=== PATIENT | female | born 1960 | race Caucasian/White ===

== ENCOUNTER → 2021-01-12 07:52 | Outpatient (CLI) | payer MEDICAID, SELFPAY ==
--- NOTE | 2021-01-12 07:55 | CT_ITS ---
ACR Level 3 findings have been noted. An addendum which confirms receipt of the report will follow. STUDY: CTA NECK WITH CONTRAST REASON FOR EXAM: Female, 60 years old. CAROTID ARTORY STENOSIS RADIATION DOSAGE (If Supplied By Facility): CTDIvol = ( 17.23 ) mGy, DLP = ( 550.90 ) mGycm TECHNIQUE: CT angiography with multi-detector data acquisition was performed from the aortic arch to the skull base following intravenous administration of IV 100mL [id number]-370. MIP images were reconstructed from the axial data set. Post-processing of the angiographic images was performed, with multiplanar reformation and 3D reconstruction. Individualized dose optimization techniques were used for this CT. COMPARISON: None. FINDINGS: AORTIC ARCH: There is atherosclerotic plaque of the visualized aortic arch. There is occlusion of the left subclavian artery at the origin and just proximal to the left vertebral takeoff. RIGHT CAROTID ARTERIES: Normal right common carotid artery (CCA). There is moderate atherosclerotic plaque formation with moderate narrowing of the right carotid bulb. There is moderate atherosclerotic plaque formation of the origin of the right internal carotid artery with an estimated stenosis of 50-69% stenosis. Normal visualized cervical portion of the right internal carotid artery. LEFT CAROTID ARTERIES: Normal left common carotid artery (CCA). There is mild atherosclerotic plaque formation with minimal narrowing of the left carotid bulb. There is mild atherosclerotic plaque formation of the origin of the left internal carotid artery with less than 50% cross sectional diameter stenosis. Normal visualized cervical portion of the left internal carotid artery. VERTEBRAL ARTERIES: Patent bilateral vertebral arteries. CT/CTA Neck W/WO Contrast IMPRESSION: Left subclavian artery occlusion proximal to the left vertebral artery. Subclavian steal syndrome is not excluded. Further evaluation with sonography can be obtained. 50-69% stenosis of the right ICA. Electronically Signed: Eddie Marie MD at 9:12 EDT Tel , Service support ,
--- NOTE | 2021-01-12 08:20 | AAVD_ITS ---
Reason For Study: Stricture of artery Aorta Measurements Aorta Doppler Measurements Proximal aorta measures1.78 x 1.78cm. in cross- Peak systolic flow velocities within the proximal sectional axis. aorta measure 130.8 cm/sec. Proximal aorta measures1.73cm. in longitudinal Peak systolic flow velocities within the mid aorta axis. measure 208.9 cm/sec. Mid aorta measures1.00 x 1.05cm. in cross- Peak systolic flow velocities within the distal sectional axis. aorta measure 256.2 cm/sec. Mid aorta measures1.07cm. in longitudinal axis. Distal aorta measures1.00 x 1.04cm. in cross- sectional axis. Distal aorta measures1.05cm. in longitudinal axis. Left Iliac Artery Unable to visualize left iliac artery due to bowel gas. Right Iliac Artery Right iliac artery measures 0.77 x 0.72 cm. in the cross-sectional axis. Right iliac artery measures 0.76 cm. in the longitudinal axis. Peak systolic velocity in the right iliac artery measures 213.1 cm/sec. Procedure Aorta IVC Iliac vasculature or bypass grafts [id number]. Exam performed in department. VL/Abd Aortic/IVC Duplex scan Interpretation Summary Moderate elevated velocities in aorta and unable to visualize left iliac. May w derrick further means of evaluation. Ordering Physician: Charbel Barry Referring Physician: Gerry Yu Performed By: Valentine Marina RVT
--- NOTE | 2021-01-12 08:20 | ADU_ITS ---
Reason For Study: Stricture of artery Right Velocities Left Velocities Ext. Iliac Artery, dist = 206.2 cm./sec. Ext Iliac Artery, dist = 211.4 cm./sec. Common Femoral Artery, mid = 159.5 cm./sec. Common Femoral Artery, mid = 151.7 cm./sec. SFA, Origin, 34.7 cm/sec. SFA, Origin, 108.8 cm/sec. SFA, Prox, 175.2 cm/sec. Supf. Femoral Artery, prox = 351.3 cm./sec. SFA, Prox, distal to stenosis is Occluded. Supf. Femoral Artery, mid = 424.8 cm./sec. SFA, Mid, distal to occlusion, 62.1 cm/sec. Supf. Femoral Artery, dist = 55.3 cm./sec. Supf Femoral Artery, mid = 133.6 cm./sec. Profunda Femoral Artery = 87 cm./sec. Supf Femoral Artery, dist. = 70.5 cm./sec. Popliteal Artery, proximal, = 70.7 cm./sec. Profunda Femoral Artery = 159.5 cm./sec. Popliteal Artery, mid = 74 cm./sec. Popliteal Artery, prox. = 68.7 cm./sec. Popliteal Artery, distal = 35.5 cm./sec. Popliteal Artery, mid = 81.4 cm./sec. Post. Tibial Artery, prox = 36 cm./sec. Popliteal Artery, dist = 63.2 cm./sec. Post Tibial Artery, mid = 47.4 cm./sec. Post. Tibial Artery, prox = 22.5 cm./sec. Post Tibial Artery, dist. = 51.7 cm./sec. Post. Tibial Artery, mid = 22.5 cm./sec. Peroneal Artery, prox = 25.1 cm./sec. Post. Tibial Artery, dist = 20.4 cm./sec. Peroneal Artery, mid = 27.3 cm./sec. Peroneal Artery, prox = 39.6 cm./sec. Peroneal Artery,dist. = 16.3 cm./sec. Peroneal Artery, mid = 23.9 cm./sec. Ant.Tibial Artery, prox = 32 cm./sec. Peroneal Artery,dist = 36 cm./sec. Ant Tibial Artery, mid = 35.9 cm./sec. Ant. Tibial Artery, prox = 48.8 cm./sec. Ant. Tibial Artery, distal = 36.4 cm./sec. Ant. Tibial Artery, mid = 51.7 cm./sec. Ant. Tibial Artery, dist = 60.7 cm./sec. Procedure Exam performed in department. VL/US Art Duplex Bilat Lower Ext Interpretation Summary Right femoral occluded and severe stenosis in left femoral. Ordering Physician: Charbel Barry Referring Physician: Gerry Yu Performed By: Valentine Marina RVT
== END ==
PROVIDERS: PCP Student in an Organized Health Care Education/Training Program; Referring Provider Surgery Vascular Surgery; Visit Provider Surgery Vascular Surgery
DX: I65.23 Occlusion and stenosis of bilateral carotid arteries (principal); I77.1 Stricture of artery; E78.00 Pure hypercholesterolemia, unspecified; I20.9 Angina pectoris, unspecified; I51.9 Heart disease, unspecified; E11.9 Type 2 diabetes mellitus without complications
CPT/HCPCS: 70498; 93925; 93978; Q9967

== ENCOUNTER 2022-10-26 11:04 | Emergency (ER) | payer MEDICAID, SELFPAY ==
[2022-10-26 11:05] VITALS: BP 196/65; PULSE 138; RESP 18; TEMP 36.1; O2SAT 98; BMI 35.9
--- NOTE | 2022-10-26 11:10 | NURSING ---
NO OLD EKGS
--- NOTE | 2022-10-26 12:07 | EKG12_ITS ---
Test Reason : CP Blood Pressure : / mmHG Vent. Rate : 102 BPM Atrial Rate : 102 BPM P-R Int : 224 ms QRS Dur : 140 ms QT Int : 380 ms P-R-T Axes : 082 083 030 degrees QTc Int : 495 ms Sinus tachycardia with 1st degree A-V block Right bundle branch block T wave abnormality, consider inferolateral ischemia Abnormal ECG Confirmed by POLO HANSON, MARNIE ([id number]), international editorial producer QIANA DOHERTY ([id number]) on 10/27/2022 9:14:59 AM Referred By: BB Confirmed By:MARNIE CUELLAR MD
--- NOTE | 2022-10-26 12:08 | EDS_ITS ---
HPI History of Present Illness Chief Complaint: Chest Pain Informant: patient Narrative Narrative: Patient presents with about 15 minutes of diffuse nonradiating chest discomfort along with racing palpitations, both of which are now resolved and did so together. No lightheadedness or near syncope/syncope. No dyspnea. She has had episodes like this in the past, was diagnosed with tachybradycardia syndrome, and is scheduled to get a pacemaker here soon. She developed bradycardia whenever she was placed on low-dose metoprolol, it was symptomatic so that was immediately discontinued. She has a history of CAD as well as a thrombosed left subclavian artery. She is on Brilinta but no anticoagulants. She has seen vascular surgery and they are monitoring things, no interventions or surgery needed. [facility] Medical History Anemia of chronic renal failure Aortic calcification Carotid artery stenosis without cerebral infarction Chronic diastolic (congestive) heart failure Chronic kidney disease, stage 3a Cirrhosis of liver Diabetes mellitus type 2 in nonobese Diabetic neuropathy First degree AV block Hx of pulmonary embolus Hypertensive urgency (~09/13/22) Leg swelling Leukocytosis Moderate obstructive sleep apnea NSTEMI (non-ST elevated myocardial infarction) Palpitations Peripheral vascular disease of extremity RBBB SOB (shortness of breath) Tachycardia with sick sinus syndrome Ventral hernia Home Medications acetaminophen 500 mg capsule 1,000 mg PO TID PRN fever or pain 10/18/22 [History Last Taken Unknown] albuterol sulfate 90 mcg/actuation aerosol inhaler 2 puff inhalation Q4H PRN shortness of breath or wheezing 10/18/22 [History Last Taken Unknown] allopurinol 100 mg tablet 100 mg PO DAILY 10/18/22 [History Last Taken Unknown] amlodipine 5 mg tablet 5 mg PO BID 10/18/22 [History Last Taken Unknown] aspirin 81 mg tablet,delayed release 81 mg PO DAILY 10/18/22 [History Last Taken Unknown] atorvastatin 80 mg tablet 80 mg PO QHS 10/18/22 [History Last Taken Unknown] chlorthalidone 25 mg tablet 25 mg PO DAILY 10/18/22 [History Last Taken Unknown] ergocalciferol (vitamin D2) 1,250 mcg (50,000 unit) capsule 1,250 mcg PO QWEEK 10/18/22 [History Last Taken Unknown] lisinopril 40 mg tablet 40 mg PO DAILY 10/18/22 [History Last Taken Unknown] metformin 500 mg tablet 500 mg PO BID 10/18/22 [History Last Taken Unknown] ondansetron 4 mg disintegrating tablet 4 mg PO Q6H PRN nausea and vomiting 10/18/22 [History Last Taken Unknown] ticagrelor 90 mg tablet 90 mg PO Q12H 10/18/22 [History Last Taken Unknown] clonidine HCl 0.1 mg tablet 0.1 mg PO TID PRN hypertensive emergency 10/20/22 [History Last Taken Unknown] hydralazine 10 mg tablet 10 mg PO TID 10/20/22 [History Last Taken Unknown] midodrine 2.5 mg tablet 2.5 mg PO TID 10/20/22 [History Last Taken Unknown] nitroglycerin 0.4 mg sublingual tablet 0.4 mg sublingual Q5-15M 10/20/22 [History Last Taken Unknown] amiodarone 200 mg tablet 200 mg PO DAILY #30 tabs 10/26/22 [Rx Last Taken Unknown] Allergy/AdvReac Type Severity Reaction Status Date / Time clindamycin Allergy Severe Laryngospas Verified 10/26/22 11:06 ms Penicillins Allergy Severe Anaphylaxis Verified 10/26/22 11:06 doxazosin [From Cardura] Allergy Intermediate Swelling Verified 10/26/22 11:06 Iodinated Contrast Media Allergy Intermediate Hives Verified 10/26/22 11:06 shellfish derived Allergy Intermediate Hives Verified 10/26/22 11:06 Family History Mother Heart disease Cancer renal CVA (cerebral vascular accident) Grandmother Myocardial infarction Diabetes Surgical History History of coronary artery stent placement (~06/03/22) Hx of cardiac catheterization Hx of cholecystectomy Hx of hysterectomy (~1992) Social History Smoking Status: Current every day smoker tobacco type: cigarettes alcohol intake: never substance use type: does not use caffeine: Yes Type: coffee Number of servings: 1 ROS ROS ED Constitutional Constitutional ED: Denies chills or fever(s) Eyes Eyes: Denies change in vision or diplopia ENT ENT ED: Denies rhinorrhea or sore throat Cardiovascular Cardiovascular: Reports chest pain, palpitations and racing heartbeat Respiratory/Chest Respiratory/Chest: Denies cough or dyspnea Gastrointestinal Gastrointestinal: Denies abdominal pain, diarrhea, nausea or vomiting Genitourinary Genitourinary ED: Denies dysuria or hematuria Musculoskeletal Musculoskeletal: Denies back pain or neck pain Integumentary Denies abscess or rash Neurologic Neurologic: Denies headache(s), paresthesias or weakness Psychiatric Psychiatric: Denies anxiety or suicidal thoughts EXAM Physical Exam Const Vital Signs: 10/26/22 11:05 10/26/22 11:34 10/26/22 12:18 Temperature 97 F L Temperature Source Temporal Pulse Rate 138 H Respiratory Rate 18 Respiratory Effort Normal Blood Pressure 196/65 H Blood Pressure Mean 108 Pulse Ox 98 98 Oxygen Delivery Method Room Air Room Air 10/26/22 12:32 10/26/22 13:27 10/26/22 14:31 Temperature Temperature Source Pulse Rate 88 80 81 Respiratory Rate 16 16 21 H Respiratory Effort Blood Pressure 124/63 H Blood Pressure Mean 83 Pulse Ox 98 98 98 Oxygen Delivery Method Room Air Room Air Room Air 10/26/22 15:10 Temperature Temperature Source Pulse Rate 80 Respiratory Rate 16 Respiratory Effort Blood Pressure 133/45 H Blood Pressure Mean 74 Pulse Ox 97 Oxygen Delivery Method Room Air Positive well nourished and well developed General Appearance ED: well developed and NAD HEENT Reports moist mucous membranes normocephalic and atraumatic Eyes PERRL and EOMs intact bilaterally Neck full ROM and supple Chest Wall inspection of chest normal and palpation of chest normal Resp normal respiratory effort and clear to auscultation bilaterally Cardio regular rate, regular rhythm and no murmurs Peripheral Pulses: pulses 2+ throughout GI non-tender and non-distended Auscultation: normoactive bowel sounds Palpation: soft Back/Spine no CVA tenderness General Back: other FROM Extremity normal to inspection General Extremety ED: Negative for edema, pulses abnormal or tenderness General Extremity: Negative for edema or pulses abnormal Neuro oriented x3, CN's II-XII intact bilaterally and no sensory deficits noted Sensorium / Orientation: awake and alert Motor Exam: strength 5/5 throughout Skin no rashes or lesions noted and no wounds Heart Score History: Moderately Suspicious ECG: Nonspecific Repolarization Age: >45 - <65 years Risk Factors: >/= 3 Risk Factors or History of CAD Troponin: </= Normal Limit Score: 5 MDM MDM MDM Narrative Medical decision making narrative: Patient was observed, she had no further episodes of palpitations or chest discomfort. Her EKG shows inferior lateral repolarization abnormality but it is unchanged compared to several of her old EKGs. Her initial troponin is 8, we did a 2-hour delta and continued monitoring her, she was asymptomatic and it was negative for significant change at 10. I did not feel chest x-ray was indicated here. She has had these episodes before, she is already been assessed by cardiology, she was diagnosed with tachybradycardia syndrome and is awaiting pacemaker placement so that she can then be placed on beta-blockers without developing symptomatic bradycardia. Since the patient had no tachycardia since she has been here on the monitor/EKG, it is unknown if she is having episodes of atrial fibrillation or just sinus tachycardia. I discussed with Dr. Sethi, he is okay with the patient going home and recommend I touch base with Dr. Braun regarding when she can get her micro pacemaker. He said he would try to get her in when able, and recommended placing her on amiodarone 200 mg daily, without an IV load. The patient has never tried this medication. We discussed the potential for bradycardia but I think it is less likely than carvedilol to metoprolol which she has tried and failed in the past. Lab Data Attestation: I reviewed the patient's lab results. Labs: Laboratory Results - last 24 hr 10/26/22 10/26/22 10/26/22 11:24 11:24 15:00 WBC 12.2 H RBC 4.28 Hgb 12.2 Hct 38.3 MCV 89.5 MCH 28.5 MCHC 31.9 L RDW Std Deviation 50.2 H RDW Coeff of Claudia 15.4 H Plt Count 347 MPV 10.1 Immature Gran % (Auto) 0.500 Neut % (Auto) 68.5 Lymph % (Auto) 20.6 [place] % (Auto) 5.4 Eos % (Auto) 4.1 Baso % (Auto) 0.9 Absolute Neuts (auto) 8.3 H Absolute Lymphs (auto) 2.50 Nucleated RBC % 0 Sodium 141 Potassium 3.8 Chloride 109 H Carbon Dioxide 21.0 Anion Gap 11 BUN 33 H Creatinine 1.64 H Estim Creat Clear Calc 29.42 Est GFR (MDRD) Af Amer 41 L Est GFR (MDRD) Non-Af 34 L BUN/Creatinine Ratio 20.1 H Glucose 184 H Calcium 9.6 Troponin I High Sens 8 10 Rhythm Strip Rhythm Strip: Sinus Rhythm Rate: 99 Ectopy: None EKG Initial EKG: Attestation: I personally reviewed and interpreted this EKG as follows: Interpretation: Sinus Rhythm, No Acute Injury Pattern, RBBB and AV Block (1st deg) Comments: Inferolateral repolarization abnormality Prior EKG tracings: available for review Prior: Unchanged Discharge Plan Triage Chief Complaint: Chest Pain ED Provider: Ramon Flanagan Dx/Rx/DC Orders Clinical Impression: Palpitations, Chest pain, Tachycardia with sick sinus syndrome Instructions: Sick Sinus Syndrome Prescriptions: New amiodarone 200 mg tablet 200 mg PO DAILY Qty: 30 0RF No Action acetaminophen 500 mg capsule 1,000 mg PO TID PRN (Reason: fever or pain) albuterol sulfate 90 mcg/actuation HFA aerosol inhaler 2 puff inhalation Q4H PRN (Reason: shortness of breath or wheezing) allopurinol 100 mg tablet 100 mg PO DAILY amlodipine 5 mg tablet 5 mg PO BID aspirin 81 mg tablet,delayed release (DR/EC) 81 mg PO DAILY atorvastatin 80 mg tablet 80 mg PO QHS ergocalciferol (vitamin D2) 1,250 mcg (50,000 unit) capsule 1,250 mcg PO QWEEK lisinopril 40 mg tablet 40 mg PO DAILY metformin 500 mg tablet 500 mg PO BID ondansetron 4 mg tablet,disintegrating 4 mg PO Q6H PRN (Reason: nausea and vomiting) ticagrelor 90 mg tablet 90 mg PO Q12H chlorthalidone 25 mg tablet 25 mg PO DAILY hydralazine 10 mg tablet 10 mg PO TID nitroglycerin 0.4 mg tablet, sublingual 0.4 mg sublingual Q5-15M midodrine 2.5 mg tablet 2.5 mg PO TID Label Comments: TAKE 2 TABLETS BY MOUTH 3 TIMES A DAY NEEDED FOR DIZZINESS -IF SBP 90 AND DIZZY clonidine HCl 0.1 mg tablet 0.1 mg PO TID PRN (Reason: hypertensive emergency) Label Comments: If SBP greater than 180 Primary Care Provider: Gerry Yu Referrals: Claribel Sethi MD [Med Staff - Active Staff] - Keep Jolene appointment Gerry Yu DO [Primary Care Provider] - Disposition Disposition: Home, Self Care
[2022-10-26 12:18] VITALS: O2SAT 98
[2022-10-26] MEDS: Ondansetron 4 MG/2 ML Vial IV (12:20)
[2022-10-26 12:25] LABS: Absolute Neutrophil Count 8.3 X10^3/uL (2.0-7.7); Basophil# 0.11 X10^3/uL; Basophil% 0.9 % (0-1); Eosinophils% 4.1 % (0-5); Hematocrit 38.3 % (37-47); Hemoglobin 12.2 g/dL (12.0-15.0); Lymphocyte % 20.6 % (19-41); Mean Corp Hgb Conc 31.9 g/dL (32-36); Mean Corpuscular Hgb 28.5 pg (27.0-32.0); Mean Corpuscular Volume 89.5 fL (81-99); Mean Platelet Vol. 10.1 fl (6.2-12.0); Monocyte# 0.66 X10^3/uL; Monocyte% 5.4 % (0-10); NRBC Flagged by Analyzer 0 % (0-5); Neutrophil # 8.33 X10^3/uL (2.7-7.7); Neutrophil % 68.5 % (47-70); Platelet Count 347 K/mm3 (150-450); RBC Distribution Width CV 15.4 % (11.6-14.6); RBC Distribution Width SD 50.2 fl (35.1-43.9); Red Blood Count 4.28 M/mm3 (4.2-5.4); White Blood Count 12.2 K/mm3 (4.4-11.0)
[2022-10-26 12:32] VITALS: PULSE 88; RESP 16; O2SAT 98
[2022-10-26 12:42] LABS: Anion Gap 11 (5-15); BUN 33 mg/dL (7-18); BUN/Creat Ratio 20.1 RATIO (10-20); Calcium,Total 9.6 mg/dL (8.5-10.1); Chloride 109 mmol/L (98-107); Creatinine, Serum 1.64 mg/dL (0.55-1.02); EST Glomerular Filtration Rate 34 mL/min (>60); Est Glom Filt Rate - Afr Amer 41 mL/min (>60); Estimated Creatinine Clearance 29.42 ml/min; Glucose 184 mg/dL (74-106); Potassium 3.8 mmol/L (3.5-5.1); Sodium Level 141 mmol/L (136-145); Troponin-I HS (w/2H Reflex) 8 pg/mL (3.0-54.0)
[2022-10-26 13:27] VITALS: PULSE 80; RESP 16; O2SAT 98
[2022-10-26 14:20] LABS: Reflex Troponin-HS? (from REC) Y
[2022-10-26 14:31] VITALS: BP 124/63; PULSE 81; RESP 21; O2SAT 98
[2022-10-26 15:10] VITALS: BP 133/45; PULSE 80; RESP 16; O2SAT 97
[2022-10-26 15:35] LABS: Troponin-I HS 10 pg/mL (3.0-54.0)
== END 2022-10-26 16:19 | disposition home or self-care (01) ==
PROVIDERS: Emergency Provider Emergency Medicine; PCP Student in an Organized Health Care Education/Training Program; Visit Provider Emergency Medicine
DX: R07.9 Chest pain, unspecified (principal); K74.60 Unspecified cirrhosis of liver; I50.32 Chronic diastolic (congestive) heart failure; E11.22 Type 2 diabetes mellitus with diabetic chronic kidney disease; E11.40 Type 2 diabetes mellitus with diabetic neuropathy, unspecified; I49.5 Sick sinus syndrome; N18.31 Chronic kidney disease, stage 3a; R00.2 Palpitations; I25.10 Atherosclerotic heart disease of native coronary artery without angina pectoris; I65.29 Occlusion and stenosis of unspecified carotid artery; G47.33 Obstructive sleep apnea (adult) (pediatric); F17.210 Nicotine dependence, cigarettes, uncomplicated; I25.2 Old myocardial infarction; Z79.899 Other long term (current) drug therapy; Z79.82 Long term (current) use of aspirin; Z79.84 Long term (current) use of oral hypoglycemic drugs; Z95.5 Presence of coronary angioplasty implant and graft; Z86.711 Personal history of pulmonary embolism
CPT/HCPCS: 80048; 84484; 85025; 93005; 99284; A4216; J2405

== ENCOUNTER 2022-11-12 04:59 | Observation (INO) | payer MEDICAID, SELFPAY ==
[2022-11-12] VITALS (13 sets, daily range): BP systolic 87–158; BP diastolic 42–75; PULSE 74–90; RESP 13–18; TEMP 36.2–36.9; O2SAT 93–100; BMI 36.1
--- NOTE | 2022-11-12 05:35 | EKG12_ITS ---
Test Reason : am Blood Pressure : / mmHG Vent. Rate : 079 BPM Atrial Rate : 079 BPM P-R Int : 270 ms QRS Dur : 142 ms QT Int : 440 ms P-R-T Axes : 075 052 040 degrees QTc Int : 504 ms Sinus rhythm with 1st degree A-V block Right bundle branch block Abnormal ECG Confirmed by POLO HANSON, MARNIE ([id number]), tape editor QIANA DOHERTY ([id number]) on 11/15/2022 12:45:49 PM Referred By: Georgie Confirmed By:MARNIE CUELLAR MD
--- NOTE | 2022-11-12 05:45 | PCM.HP.STD ---
HPI - General General Date of Admission: 11/12/22 Date of Service: 11/12/22 Chief Complaint: Chest Pain HPI Narrative ROSALINA RABAGO, is a 62 F with a significant history of CKD stage IIIa; diabetes mellitus on metformin; hypertension; and CAD status post 2 stents placed at [facility] in [place] on June 03, 2022 and who represented to [facility] with episodic chest pain that started about 3 days before presentation. The pain is located at her left chest. One time the pain radiated to her left arm. Walking and moving aggravate the pain and lying down improves the pain. Associated with her symptoms is nausea and vomiting. Also, shortness of breath over the pain. Also patient has palpitations with the pain. She feels her heart racing and then she feels a heart rate dropping. Patient reports that her symptoms actually started about 4 days after she had the stents placed. At that time she had racing of the heart and elevated blood pressure.. Then as the days went by she also developed low heart rates. She reported typically she has high blood pressure, low blood pressure, bradycardia and tachycardia. Patient reports previously being on metoprolol but it caused her heart rate to drop. Metoprolol was changed to carvedilol. Carvedilol dose was later halved but still still continue to have drop in heart rate so she quit taking carvedilol. Patient recently establish care with Dr. Sethi. Discussion was made to start patient on amiodarone. However patient is allergic to iodine so she could not be started on amiodarone. Patient reported that she was supposed to have leadless micro pacemaker because of subclavian steal syndrome which will interfere with placement of regular pacemaker. However insurance did not approve her for leadless micro pacemaker. Patient reports a schedule office appointment with Dr. Yemi Mares a test grader in [place] at 2pm 11/12/21. [facility]LY [facility] Medical History Anemia of chronic renal failure Aortic calcification Atherosclerosis of coronary artery of [place] heart without angina pectoris Carotid artery stenosis without cerebral infarction Chronic diastolic (congestive) heart failure Chronic kidney disease, stage 3a Cirrhosis of liver CKD (chronic kidney disease) stage 3, GFR 30-59 ml/min Coronary artery disease Diabetes mellitus type 2 in nonobese Diabetic neuropathy First degree AV block Hx of pulmonary embolus Hypertensive urgency (~09/13/22) Leg swelling Leukocytosis Moderate obstructive sleep apnea NSTEMI (non-ST elevated myocardial infarction) Palpitations Peripheral vascular disease of extremity RBBB SOB (shortness of breath) Tachycardia with sick sinus syndrome Ventral hernia Home Medications acetaminophen 500 mg capsule 1,000 mg PO PRN PRN fever or pain 10/18/22 [History Last Taken Unknown] albuterol sulfate 90 mcg/actuation aerosol inhaler 2 puff inhalation PRN PRN shortness of breath or wheezing 10/18/22 [History Last Taken Unknown] allopurinol 100 mg tablet 100 mg PO DAILY Check with primary doctor 10/18/22 [History Last Taken Unknown] amlodipine 5 mg tablet 5 mg PO BID Check with primary doctor 10/18/22 [History Last Taken Unknown] aspirin 81 mg tablet,delayed release 81 mg PO DAILY Check with primary doctor 10/18/22 [History Last Taken Unknown] atorvastatin 80 mg tablet 80 mg PO QHS Check with primary doctor 10/18/22 [History Last Taken Unknown] chlorthalidone 25 mg tablet 25 mg PO DAILY Check with primary doctor 10/18/22 [History Last Taken Unknown] ergocalciferol (vitamin D2) 1,250 mcg (50,000 unit) capsule 1,250 mcg PO QWEEK Check with primary doctor 10/18/22 [History Last Taken Unknown] lisinopril 40 mg tablet 40 mg PO DAILY Check with primary doctor 10/18/22 [History Last Taken Unknown] metformin 500 mg tablet 500 mg PO BID Check with primary doctor 10/18/22 [History Last Taken Unknown] ondansetron 4 mg disintegrating tablet 4 mg PO Q6H PRN nausea and vomiting 10/18/22 [History Last Taken Unknown] ticagrelor 90 mg tablet 90 mg PO Q12H Check with primary doctor 10/18/22 [History Last Taken Unknown] clonidine HCl 0.1 mg tablet 0.1 mg PO PRN PRN hypertensive emergency 10/20/22 [History Last Taken Unknown] midodrine 2.5 mg tablet 2.5 mg PO PRN PRN Low blood pressure 10/20/22 [History Last Taken Unknown] nitroglycerin 0.4 mg sublingual tablet 0.4 mg sublingual Q5-15M PRN Chest Pain 10/20/22 [History Last Taken Unknown] carvedilol 3.125 mg tablet 1.5625 mg PO .COMPLEX Check with primary doctor 11/09/22 [History Last Taken 11/08/22] hydralazine 10 mg tablet 10 mg PO BID Check with primary doctor 11/11/22 [History Last Taken Unknown] Allergy/AdvReac Type Severity Reaction Status Date / Time clindamycin Allergy Severe Laryngospas Verified 10/26/22 11:06 ms Penicillins Allergy Severe Anaphylaxis Verified 10/26/22 11:06 doxazosin [From Cardura] Allergy Intermediate Swelling Verified 10/26/22 11:06 Iodinated Contrast Media Allergy Intermediate Hives Verified 10/26/22 11:06 shellfish derived Allergy Intermediate Hives Verified 10/26/22 11:06 Family History Mother Heart disease Cancer renal CVA (cerebral vascular accident) Grandmother Myocardial infarction Diabetes Surgical History History of coronary artery stent placement (~06/03/22) Hx of cardiac catheterization Hx of cholecystectomy Hx of hysterectomy (~1992) Presence of stent in coronary artery Social History housing: house Smoking Status: Current every day smoker tobacco type: cigarettes alcohol intake: never substance use type: does not use caffeine: Yes Type: coffee Number of servings: 1 ROS ROS Narrative Pertinent positives and pertinent negatives as noted in HPI. All other systems were reviewed and are negative Vital Signs Vital Signs Vital Signs: 11/12/22 05:01 11/12/22 05:24 Temperature 97.7 F L Temperature Source Oral Pulse Rate 81 Respiratory Rate 18 Respiratory Effort Normal Non-Labored Respiratory Depth Normal Respiratory Pattern Normal Blood Pressure 142/60 H Blood Pressure Mean 87 Blood Pressure Source Monitor Blood Pressure Position Semi-Fowlers Blood Pressure Location Left Arm Pulse Ox 100 Oxygen Delivery Method Room Air Room Air Weight Weight: 92.4 kg Body Mass Index (BMI) 36.1 Physical Exam Narrative Physical exam: General: Well-nourished, well-developed. Head: Normocephalic, atraumatic, no tenderness Eyes: Vision is grossly intact. EOMI ENT, no trauma, moist mucous membranes, no rhinorrhea Neck: Nontender, No thyromegaly. CVS: Regular rate and rhythm. S1-S2 present. No murmur, gallop or rub. Respiratory : clear to auscultation bilaterally, chest wall nontender, no wheezing Abdomen: Soft, nontender, nondistended, normal bowel sounds, no masses : Deferred Back: Nontender, no CVA tenderness. Extremities: Nontender full range of motion, no trauma Skin: Normal color, no trauma, abrasions Neuro: Alert, oriented, cranial nerves II through XII grossly intact. Psychiatry: Normal mood. Normal affect. Not depressed. Not anxious. Assessment & Plan Assessment/Plan (1) Tachycardia with sick sinus syndrome: (2) CKD (chronic kidney disease) stage 3, GFR 30-59 ml/min: (3) Chest pain, unspecified: PLAN: Plan Chest Pain and Tachy-erika Syndrome Place on a monitored bed at PCU EKG with first-degree AV block and right bundle branch block. Check chest x-ray. Aspirin, Brilinta and high statin statin continue SL NTG 0.4 mg prn as needed for chest pain ordered Initial high sensitive troponin at outside hospital ED was negative. As at the time of transfer a repeat troponin was pending. Will repeat high sensitivity troponin. Keep npo. Discussed and consulted test grader, Dr. Braun. Prolonged QTc interval Avoid QTc prolongation drugs. Diabetes mellitus with nephropathy Hold home metformin. Accu-Chek with correction scale insulin ordered. CKD stage IIIa From records at [facility] stable Hypertension Blood pressure is not within goal Lisinopril, chlorthalidone, hydralazine, amlodipine and as needed clonidine continued. Trend blood pressure and adjust blood pressure medications. DVT prophylaxis SCD ordered. Charges/Coding Visit Charges Inpatient E&M: 99568 Init Hosp L3
[2022-11-12 06:47] LABS: Absolute Lymphocyte Count 3.63 X10^3/uL (0.83-4.51); Absolute Neutrophil Count 8.9 X10^3/uL (2.0-7.7); Basophil# 0.12 X10^3/uL; Basophil% 0.8 % (0-1); Eosinophil# 0.69 X10^3/uL; Eosinophils% 4.7 % (0-5); Hematocrit 36.1 % (37-47); Hemoglobin 11.6 g/dL (12.0-15.0); Lymphocyte # 3.63 X10^3/ul (0.83-4.51); Lymphocyte % 24.9 % (19-41); Mean Corp Hgb Conc 32.1 g/dL (32-36); Mean Corpuscular Hgb 29.2 pg (27.0-32.0); Mean Corpuscular Volume 90.9 fL (81-99); Mean Platelet Vol. 10.1 fl (6.2-12.0); Monocyte% 8.2 % (0-10); NRBC Flagged by Analyzer 0 % (0-5); Neutrophil # 8.89 X10^3/uL (2.7-7.7); Platelet Count 411 K/mm3 (150-450); RBC Distribution Width CV 15.5 % (11.6-14.6); Red Blood Count 3.97 M/mm3 (4.2-5.4); White Blood Count 14.6 K/mm3 (4.4-11.0)
--- NOTE | 2022-11-12 06:53 | RAD_ITS ---
STUDY: X-RAY CHEST REASON FOR EXAM: Female, 62 years old. Chest pain TECHNIQUE: Single AP portable view of the chest. COMPARISON: Comparison is made with prior study dated 10/25/2022. FINDINGS: EKG electrodes are seen. A faint 2.2 cm x 1.8 cm nodule is seen in the medial aspect of the right upper lobe. Correlation with a CT scan is recommended. There is no demonstrated pleural abnormality. Normal size heart. Normal mediastinum and lavon. Normal visualized pulmonary arteries. There is atherosclerotic calcification of the aortic arch with tortuosity. There are diffuse degenerative changes of the visualized thoracic spine. Normal visualized ribs, clavicles, and shoulders. There is no demonstrated abnormality of the visualized soft tissue structures of the upper abdomen. RAD/Chest 1 View (Portable) IMPRESSION: Questionable 2.2 cm x 1.8 cm nodule in the medial aspect of the right upper lobe. Correlation with a CT scan of the thorax is recommended. Electronically Signed: Liu Flaherty MD at 8:56 EST ,
[2022-11-12] MEDS: 0.9% Saline Lock 10 ML Syringe IV (07:01)
[2022-11-12 07:02] LABS: Anion Gap 8 (5-15); BUN 43 mg/dL (7-18); BUN/Creat Ratio 27.9 RATIO (10-20); Calcium,Total 9.6 mg/dL (8.5-10.1); Chloride 107 mmol/L (98-107); Creatinine, Serum 1.54 mg/dL (0.55-1.02); EST Glomerular Filtration Rate 36 mL/min (>60); Est Glom Filt Rate - Afr Amer 44 mL/min (>60); Estimated Creatinine Clearance 31.33 ml/min; Glucose 134 mg/dL (74-106); Magnesium 2.2 mg/dL (1.6-2.6); Potassium 3.8 mmol/L (3.5-5.1); Sodium Level 141 mmol/L (136-145)
[2022-11-12] MEDS: TICAGRELOR 90 MG TABLET PO (07:02)
[2022-11-12] MEDS: 0.9% Normal Saline 1,000 ML 75 ML IV (07:02)
[2022-11-12 07:09] LABS: Troponin-I HS 11 pg/mL (3.0-54.0)
[2022-11-12 07:25] LABS: Bedside Glucose 141 mg/dL (74-106)
--- NOTE | 2022-11-12 08:07 | PCM.CONS.C ---
Assessment & Plan Assessment/Plan (1) Tachycardia with sick sinus syndrome: PLAN: She does appear to have evidence of tachybradycardia syndrome with pauses noted. She had been referred to have a consideration for her pacemaker placed in an outside facility but now looking at the information and data fully I think that we can proceed with a permanent transvenous pacemaker here. Risk benefits alternatives have been discussed with her she understands and agrees to proceed. (2) Resistant hypertension: PLAN: She does have a history of hypertension and the plan to be to continue the current medical therapy. An echocardiogram will be obtained to assess her ventricular function. (3) Presence of stent in coronary artery: PLAN: She does have a history of coronary artery stenting as noted above. The plan will be to continue her current medical therapy. Statins and hopefully beta-cristina will be able to be instituted after the procedure. Thank you for allowing me to participate in the care of your patient. Please don't hesitate to call if any issues arise. HPI Consult Data Date of Consult: 11/12/22 HPI Narrative HPI Narrative: ROSALINA RABAGO, is a 62 F who presents to an outside hospital with chest discomfort which she describes as a heaviness and sometimes sharp. She has a history of coronary artery disease status post PCI of the LAD and the right coronary artery in June 2022 at [facility]. This was done via the right femoral approach even though the patient was noted to have femoral artery occlusion. A previous ultrasound. The patient also has a left subclavian artery occlusion. She also has a history of severe hypertension which has been labile and has been on multiple medications and has developed significant bradycardia arrhythmias as well as pauses in excess of 4 seconds on a low-dose of beta-cristina. She had been on low-dose of clonidine with this as well. It is thought that she does have some element of tachybradycardia syndrome. She recently presented in September at [facility] again with chest discomfort underwent a myocardial perfusion stress test which did not demonstrate any evidence of ischemia. Cardiac catheterization done in June had demonstrated residual 70% stenosis noted in the circumflex artery. She had seen my colleague here and at that time was thought that had tachybradycardia syndrome and would need a permanent pacemaker. Initial arrangements have been made for her to get a Micra device but this was declined by insurance. She continues to have palpitations and does not tolerate negative chronotropic agents. She presents again with chest discomfort. Her EKG demonstrated a sinus rhythm with a first-degree AV block and a right bundle branch block. [facility] Medical History Anemia of chronic renal failure Aortic calcification Atherosclerosis of coronary artery of [place] heart without angina pectoris Carotid artery stenosis without cerebral infarction Chronic diastolic (congestive) heart failure Chronic kidney disease, stage 3a Cirrhosis of liver CKD (chronic kidney disease) stage 3, GFR 30-59 ml/min Coronary artery disease Diabetes mellitus type 2 in nonobese Diabetic neuropathy First degree AV block Hx of pulmonary embolus Hypertensive urgency (~09/13/22) Leg swelling Leukocytosis Moderate obstructive sleep apnea NSTEMI (non-ST elevated myocardial infarction) Palpitations Peripheral vascular disease of extremity RBBB SOB (shortness of breath) Tachycardia with sick sinus syndrome Ventral hernia Home Medications acetaminophen 500 mg capsule 1,000 mg PO PRN PRN fever or pain 10/18/22 [History Last Taken Unknown] albuterol sulfate 90 mcg/actuation aerosol inhaler 2 puff inhalation PRN PRN shortness of breath or wheezing 10/18/22 [History Last Taken Unknown] allopurinol 100 mg tablet 100 mg PO DAILY Check with primary doctor 10/18/22 [History Last Taken Unknown] amlodipine 5 mg tablet 5 mg PO BID Check with primary doctor 10/18/22 [History Last Taken Unknown] aspirin 81 mg tablet,delayed release 81 mg PO DAILY Check with primary doctor 10/18/22 [History Last Taken Unknown] atorvastatin 80 mg tablet 80 mg PO QHS Check with primary doctor 10/18/22 [History Last Taken Unknown] chlorthalidone 25 mg tablet 25 mg PO DAILY Check with primary doctor 10/18/22 [History Last Taken Unknown] ergocalciferol (vitamin D2) 1,250 mcg (50,000 unit) capsule 1,250 mcg PO QWEEK Check with primary doctor 10/18/22 [History Last Taken Unknown] lisinopril 40 mg tablet 40 mg PO DAILY Check with primary doctor 10/18/22 [History Last Taken Unknown] metformin 500 mg tablet 500 mg PO BID Check with primary doctor 10/18/22 [History Last Taken Unknown] ondansetron 4 mg disintegrating tablet 4 mg PO Q6H PRN nausea and vomiting 10/18/22 [History Last Taken Unknown] ticagrelor 90 mg tablet 90 mg PO Q12H Check with primary doctor 10/18/22 [History Last Taken Unknown] clonidine HCl 0.1 mg tablet 0.1 mg PO PRN PRN hypertensive emergency 10/20/22 [History Last Taken Unknown] midodrine 2.5 mg tablet 2.5 mg PO PRN PRN Low blood pressure 10/20/22 [History Last Taken Unknown] nitroglycerin 0.4 mg sublingual tablet 0.4 mg sublingual Q5-15M PRN Chest Pain 10/20/22 [History Last Taken Unknown] carvedilol 3.125 mg tablet 1.5625 mg PO .COMPLEX Check with primary doctor 11/09/22 [History Last Taken 11/08/22] hydralazine 10 mg tablet 10 mg PO BID Check with primary doctor 11/11/22 [History Last Taken Unknown] Allergy/AdvReac Type Severity Reaction Status Date / Time clindamycin Allergy Severe Laryngospas Verified 10/26/22 11:06 ms Penicillins Allergy Severe Anaphylaxis Verified 10/26/22 11:06 doxazosin [From Cardura] Allergy Intermediate Swelling Verified 10/26/22 11:06 Iodinated Contrast Media Allergy Intermediate Hives Verified 10/26/22 11:06 shellfish derived Allergy Intermediate Hives Verified 10/26/22 11:06 Family History Mother Heart disease Cancer renal CVA (cerebral vascular accident) Grandmother Myocardial infarction Diabetes Surgical History History of coronary artery stent placement (~06/03/22) Hx of cardiac catheterization Hx of cholecystectomy Hx of hysterectomy (~1992) Presence of stent in coronary artery Social History housing: house Smoking Status: Current every day smoker tobacco type: cigarettes alcohol intake: never substance use type: does not use caffeine: Yes Type: coffee Number of servings: 1 ROS Constitutional Constitutional: Denies fever(s) or weight loss Eyes Eyes: Reports systems reviewed and no addt'l complaints, except as documented ENT HEENT: Reports systems reviewed and no addt'l complaints, except as documented Cardiovascular Cardiovascular: Reports chest pain at rest and palpitations; Denies chest pain with activity, dyspnea at rest, dyspnea on exertion, edema or paroxysmal nocturnal dyspnea Respiratory/Chest Respiratory/Chest: Denies dyspnea on exertion, productive cough, shortness of breath at rest or shortness of breath with exertion Gastrointestinal Gastrointestinal: Denies change in bowel habits, nausea, vomiting or weight changes Genitourinary Genitourinary: Denies difficulty urinating Musculoskeletal Musculoskeletal: Denies joint stiffness or muscle weakness Integumentary Integumentary: Denies lesions Neurologic Neurologic: Denies dizziness or syncope Psychiatric Psychiatric: Denies anxiety Endocrine Endocrinology: Denies excessive sweating or fatigue Hematologic/Lymphatic Hematologic/Lymphatic: Denies anemia Allergic/Immunologic Allergic/Immunologic: Denies seasonal rhinorrhea Risk Stratification Risk Stratification Applicable: Yes Age >/= 65: No >/= 3 CAD Risk Factors (HTN, HLD, DM, family hx of CAD, or current smoker): Yes Aspirin Use in the Past 7 Days: Yes Severe Angina (>/= episodes in 24 hours): No EKG ST Changes >/= 0.5mm: No Positive Cardiac Marker: No MAYA Risk Stratification Score: 2 MAYA % Risk: 8% Risk Objective Data Vital Signs: Vital Signs Temp Pulse Resp BP Pulse Ox O2 Del Method 97.7 F L 81 18 142/60 H 98 Room Air 11/12/22 05:01 11/12/22 05:01 11/12/22 05:01 11/12/22 05:01 11/12/22 06:58 11/12/22 06:58 Oxygen Delivery Method Room Air Weight: 203 lb 11.314 oz Body Mass Index (BMI) 36.1 Lab / Micro Data Result Diagrams: 11/12/22 06:29 11/12/22 06:29 Labs: Laboratory Results - last 24 hr 11/12/22 06:29: WBC 14.6 H, RBC 3.97 L, Hgb 11.6 L, Hct 36.1 L, MCV 90.9, MCH 29.2, MCHC 32.1, RDW Std Deviation 51.0 H, RDW Coeff of Claudia 15.5 H, Plt Count 411, MPV 10.1, Immature Gran % (Auto) 0.400, Neut % (Auto) 61.0, Lymph % (Auto) 24.9, [place] % (Auto) 8.2, Eos % (Auto) 4.7, Baso % (Auto) 0.8, Absolute Neuts (auto) 8.9 H, Absolute Lymphs (auto) 3.63, Nucleated RBC % 0 11/12/22 06:29: Sodium 141, Potassium 3.8, Chloride 107, Carbon Dioxide 26.0, Anion Gap 8, BUN 43 H, Creatinine 1.54 H, Estim Creat Clear Calc 31.33, Est GFR (MDRD) Af Amer 44 L, Est GFR (MDRD) Non-Af 36 L, BUN/Creatinine Ratio 27.9 H, Glucose 134 H, Calcium 9.6, Magnesium 2.2 11/12/22 06:29: Troponin I High Sens 11 11/12/22 07:07: POC Glucose 141 H Cardiology Labs/Tests 11/12/22 06:29: WBC 14.6 H, RBC 3.97 L, Hgb 11.6 L, Hct 36.1 L, MCV 90.9, MCH 29.2, MCHC 32.1, Plt Count 411, MPV 10.1, Immature Gran % (Auto) 0.400, Neut % (Auto) 61.0, Lymph % (Auto) 24.9, [place] % (Auto) 8.2, Eos % (Auto) 4.7, Baso % (Auto) 0.8, Absolute Neuts (auto) 8.9 H, Nucleated RBC % 0 11/12/22 06:29: Sodium 141, Potassium 3.8, Chloride 107, Carbon Dioxide 26.0, Anion Gap 8, BUN 43 H, Creatinine 1.54 H, Est GFR (MDRD) Af Amer 44 L, Est GFR (MDRD) Non-Af 36 L, BUN/Creatinine Ratio 27.9 H, Glucose 134 H, Calcium 9.6, Magnesium 2.2 Rhythm: EKG: ECHO: Stress Test: Cardiac Cath: PCI: CT Surgery: Holter monitor: EPS: PPM: CXR: Chest CT Scan:
[2022-11-12 09:39] LABS: Troponin-I HS 9 pg/mL (3.0-54.0)
[2022-11-12] MEDS: 0.9% Normal Saline 1,000 ML 15 ML IV (10:00)
[2022-11-12] MEDS: Lisinopril 40 MG Tablet PO (10:02)
[2022-11-12] MEDS: Allopurinol 100 MG Tablet PO (10:02)
[2022-11-12] MEDS: hydrALAZINE 10 MG Tablet PO ×2 (10:02→22:38)
[2022-11-12] MEDS: amLODIPine 5 MG Tablet PO ×2 (10:02→22:38)
[2022-11-12] MEDS: Chlorthalidone 50 MG Tablet 25 MG PO (10:03)
[2022-11-12 10:30] LABS: Bedside Glucose 140 mg/dL (74-106)
[2022-11-12] MEDS: Vancomycin IV 1,000 MG/200 ML BAG 200 MG IV (10:53)
--- NOTE | 2022-11-12 11:25 | NURSING ---
Called report to JOVITA Sky down at [employer].
--- NOTE | 2022-11-12 11:33 | PN.HOSP_ITS ---
Reason for Visit Reason for Visit: Diagnoses Sick sinus syndrome (11/12/22) Chronic kidney disease, stage 3 unspecified (11/12/22) Chest pain, unspecified (11/12/22) Subjective Subjective Patient seen and examined. She had no complaints today. She was admitted with a complaint of episodic chest pain as well as nausea, vomiting and palpitations. She said she often felt her heart racing, and then would feel her heart rate drop. She said she hadnt gotten those symptoms again during this admission. She is awaiting cardiology evaluation. Review of systems is otherwise negative. Objective Data Objective Data Vital Signs: Vital Signs Temp Pulse Resp BP Pulse Ox O2 Del Method 98.2 F 83 15 128/75 H 98 Room Air 11/12/22 09:56 11/12/22 10:02 11/12/22 09:56 11/12/22 10:02 11/12/22 09:56 11/12/22 09:56 Oxygen Delivery Method Room Air Weight: 203 lb 11.314 oz Body Mass Index (BMI) 36.1 Intake & Output: Intake and Output for Last 24 Hours 11/10/22 11/11/22 11/12/22 23:59 23:59 23:59 Intake Total 236.0 / 236.0 Balance 236.0 / 236.0 Lab / Micro Data Result Diagrams: 11/12/22 06:29 11/12/22 06:29 Labs: Laboratory Results - last 24 hr 11/12/22 06:29: WBC 14.6 H, RBC 3.97 L, Hgb 11.6 L, Hct 36.1 L, MCV 90.9, MCH 29.2, MCHC 32.1, RDW Std Deviation 51.0 H, RDW Coeff of Claudia 15.5 H, Plt Count 411, MPV 10.1, Immature Gran % (Auto) 0.400, Neut % (Auto) 61.0, Lymph % (Auto) 24.9, [place] % (Auto) 8.2, Eos % (Auto) 4.7, Baso % (Auto) 0.8, Absolute Neuts (auto) 8.9 H, Absolute Lymphs (auto) 3.63, Nucleated RBC % 0 11/12/22 06:29: Sodium 141, Potassium 3.8, Chloride 107, Carbon Dioxide 26.0, Anion Gap 8, BUN 43 H, Creatinine 1.54 H, Estim Creat Clear Calc 31.33, Est GFR (MDRD) Af Amer 44 L, Est GFR (MDRD) Non-Af 36 L, BUN/Creatinine Ratio 27.9 H, Glucose 134 H, Calcium 9.6, Magnesium 2.2 11/12/22 06:29: Troponin I High Sens 11 11/12/22 07:07: POC Glucose 141 H 11/12/22 08:41: Troponin I High Sens 9 11/12/22 10:08: POC Glucose 140 H Radiography Diagnostic Testing: Radiology Impression Chest X-Ray 11/12/22 06:53 IMPRESSION: Questionable 2.2 cm x 1.8 cm nodule in the medial aspect of the right upper lobe. Correlation with a CT scan of the thorax is recommended. Electronically Signed: Liu Flaherty MD at 8:56 EST Reading Location ID and State: [address] [place] [address] , Service support , Physical Exam Const alert, oriented x3 and no apparent distress HEENT head/scalp atraumatic, moist oral mucous membranes and oropharynx normal Head and Scalp: normocephalic Mouth: oral and palatal mucosa normal Eyes PERRL, EOMs intact bilaterally and conjunctivae normal Neck no lymphadenopathy, supple and no JVD Resp normal respiratory effort, no retractions, no use of accessory muscles and clear to auscultation bilaterally Cardio regular rate, regular rhythm, S1 normal heart sound, S2 normal heart sound and no murmurs GI normal to inspection, nondistended, normoactive bowel sounds, soft to palpation, non-tender and non-distended Extremity normal to inspection, full ROM and no clubbing, cyanosis or edema Neuro oriented x3, CN's II-XII intact bilaterally, moves all extremities and no focal motor deficits Sensorium / Orientation: awake and alert Motor Exam: strength 5/5 throughout Psych affect normal Assessment & Plan Assessment/Plan (1) Tachycardia with sick sinus syndrome: (2) Hyperlipidemia: (3) Sick sinus syndrome: PLAN: Plan #Chest pain in setting of tachy-erika syndrome * EKG showed first degree AV block and RBBB * cardiology on board. * troponins were negative * for pacemaker insertion today #CAD; on aspirin, high intensity statin and brilinta #TYpe 2 diabetes mellitus with nephropathy: metformin on hold. ISS. Accuchecks ACHS #CKD stage IIIa: stable #Hypertension * on amlodipine, lisinopril, chlorthalidone and hydralazine. * on clonidine also * IV hydralazine prn. * DVT prophylaxis; lovenox Charges/Coding Visit Charges Inpatient E&M: 26268 Subs Hosp L2
--- NOTE | 2022-11-12 13:09 | CL.IE_ITS ---
Patient: ROSALINA RABAGO Study Date: 11/12/2022 Performing: Donavan Braun MD : 1960 Age: 62 Gender: female PROCEDURES PERFORMED [id number])INITIAL PACER INSERT+DUAL LEADS INDICATIONS Sinoatrial node dysfunction/Sick sinus syndrome PROCEDURE DETAILS The patient was brought to the Catheterization Lab in the postabsorptive nonsedated state. Informed consent was obtained prior to the procedure. Local anesthetic was given subcutaneously to the left upper chest area with Lidocaine 2%. Access was achieved and a guidewire was advanced into the left subclavian vein. Incision was made to the left subclavicular area. A peel-away sheath was inserted into the left subclavian vein. PPM ventricular lead was inserted / positioned to right ventricular apex. PPM atrial lead was inserted / positioned to the right atrial appendage. A peel-away sheath was inserted into the left subclavian vein. PPM ventricular lead testing performed. PPM ventricular lead testing performed. PPM atrial lead testing performed. The Ventricular PM lead sutured in place with 2-0 Silk. The Atrial lead sutured in place with 2-0 Silk. PPM generator was attached to the lead(s) and inserted into the pocket. Device pocket was irrigated with antibiotic. PPM generator was then interrogated by the communications programmer. Subcutaneous closure was completed with 3-0 Vicryl. Skin closure was completed with 4-0 Vicryl. Steri-strips applied to left subclavicular incision. The patient tolerated the procedure well. Estimated Blood Loss: < 10 mls IMPLANTED / EX-PLANTED DEVICES IMPLANTED DEVICE(S): PPM Ventricular lead - Research [employer] Chemist: [employer], Model # Tendril STS 2088TC , Serial # [id number] PPM Atrial lead - Research [employer] Chemist: [employer], Model # TENDRIL STS 2088TC , Serial # [id number] PPM Generator - Research [employer] Chemist: [employer], Model # CS6236 , Serial # [id number] DEVICE PARAMETERS ATRIAL LEAD PARAMETERS: P wave- 2.8 (mV) Current- 1.7 (mA) threshold- 0.9 (V) impedence- 748 (OHMS) VENTRICULAR LEAD PARAMETERS: R wave- 6.9 (mV) Current- 0.7 (mA) threshold- 0.5 (V) impedence- 739 (OHMS) DEVICE PARAMETERS: Mode- DDDR Lower rate- 60 Upper rate- 120 CONCLUSIONS / RECOMMENDATIONS Device Conclusions: Successful implantation of a dual chamber pacemaker Device Recommendations: Follow up with Primary Care Physician PROCEDURE MEDICATIONS Fentanyl 50 mcg IV Versed 1 mg IV Antibiotic given in appropriate timeframe. Benadryl 50 mg IV @ 11/12/2022 11:50:18 Vancomycin 1 Gm 11/12/2022 11:49:53 Signed By Donavan Braun MD On 11/12/2022 13:08:19 Donavan Braun MD
[2022-11-12 15:04] LABS: Troponin-I HS 122 pg/mL (3.0-54.0)
--- NOTE | 2022-11-12 15:17 | CHAPLAIN ---
Type of Pastoral Visit _x__ Initial Visit ___ Follow-up Visit ___ On-call Visit ___ General Patient Visit ___ Spiritual Assessment ___ Family Conference ___ Bereavement ___ Rapid Response ___ Code Blue ___ Other (describe below) Pastoral Care Referral From __x_ Patient ___ Family ___ Nurse ___ Physician ___ Bowl Topper ___ Title Lawyer ___ Other (describe below) Sacrament/Intervention _x__ Active listening ___ Anointing ___ Yarsani ___ Bereavement ___ Communion ___ Kitty exploration ___ ___ Life review _x__ Prayer ___ Reconciliation ___ Sacrament of Sick ___ Supportive presence ___ Wedding ___ Other (describe below) Pastoral Comments patient gives review of health need; pt had a pacemaker put in place today; pt is tired but welcomes the support and a prayer; friend is with pt in room;
[2022-11-12] MEDS: Insulin Lispro 100 UNIT/ML INSULN.PEN SC ×2 (17:30→23:12)
[2022-11-12 17:50] LABS: Bedside Glucose 174 mg/dL (74-106)
[2022-11-12] MEDS: Atorvastatin Calcium 80 MG Tablet PO (22:38)
[2022-11-12 23:35] LABS: Bedside Glucose 301 mg/dL (74-106)
[2022-11-13 05:08] VITALS: BP 135/63; PULSE 72; RESP 16; TEMP 36.5; O2SAT 98
--- NOTE | 2022-11-13 05:40 | RAD_ITS ---
EXAM: XR Chest 3 Views INDICATION: Female, 62 years old. Status post pacemaker placement TECHNIQUE: AP and lateral views COMPARISON: 11/12/2022 FINDINGS: DEVICES: Interval placement of a dual-lead left subclavian pacemaker with the proximal lead overlying the right atrium and the distal lead overlying the right ventricle. LUNGS: No confluent air space opacity. Nodular density overlying the right mid upper lung, unchanged. No pleural effusion or pneumothorax. MEDIASTINUM: Borderline cardiomegaly. Normal mediastinal silhouette. No central pulmonary vascular congestion. Constipation of the aortic arch. . SKELETAL STRUCTURES: Mild multilevel degenerative changes in the spine. . UPPER ABDOMEN: Unremarkable RAD/Chest 3 View IMPRESSION: 1. Postoperative change from pacemaker placement 2. Nodular density overlying the right mid upper lung which may represent a prominent first right costochondral junction. CT imaging of the chest is recommended for further characterization. Electronically Signed: Jj Castillo MD at 8:57 EST ,
[2022-11-13 05:51] LABS: Absolute Lymphocyte Count 1.89 X10^3/uL (0.83-4.51); Absolute Neutrophil Count 12.8 X10^3/uL (2.0-7.7); Basophil# 0.03 X10^3/uL; Basophil% 0.2 % (0-1); Eosinophil# 0.05 X10^3/uL; Eosinophils% 0.3 % (0-5); Hematocrit 32.7 % (37-47); Hemoglobin 10.6 g/dL (12.0-15.0); Lymphocyte # 1.89 X10^3/ul (0.83-4.51); Lymphocyte % 12.2 % (19-41); Mean Corp Hgb Conc 32.4 g/dL (32-36); Mean Corpuscular Hgb 29.3 pg (27.0-32.0); Mean Corpuscular Volume 90.3 fL (81-99); Mean Platelet Vol. 10.1 fl (6.2-12.0); Monocyte% 4.5 % (0-10); NRBC Flagged by Analyzer 0 % (0-5); Neutrophil # 12.77 X10^3/uL (2.7-7.7); Neutrophil % 82.2 % (47-70); Platelet Count 321 K/mm3 (150-450); RBC Distribution Width CV 15.3 % (11.6-14.6); RBC Distribution Width SD 50.7 fl (35.1-43.9); Red Blood Count 3.62 M/mm3 (4.2-5.4); White Blood Count 15.5 K/mm3 (4.4-11.0)
[2022-11-13 06:10] LABS: Anion Gap 9 (5-15); BUN 46 mg/dL (7-18); BUN/Creat Ratio 32.9 RATIO (10-20); Chloride 108 mmol/L (98-107); EST Glomerular Filtration Rate 41 mL/min (>60); Est Glom Filt Rate - Afr Amer 49 mL/min (>60); Estimated Creatinine Clearance 34.47 ml/min; Glucose 210 mg/dL (74-106); Potassium 4.1 mmol/L (3.5-5.1); Sodium Level 140 mmol/L (136-145)
[2022-11-13] MEDS: Insulin Lispro 100 UNIT/ML INSULN.PEN SC ×2 (06:52→11:21)
[2022-11-13 07:15] LABS: Bedside Glucose 179 mg/dL (74-106)
[2022-11-13 07:18] VITALS: O2SAT 97
[2022-11-13 08:49] VITALS: BP 116/45; PULSE 74; RESP 16; TEMP 36.3; O2SAT 94
[2022-11-13] MEDS: amLODIPine 5 MG Tablet PO (08:54)
[2022-11-13] MEDS: Chlorthalidone 50 MG Tablet 25 MG PO (08:54)
[2022-11-13] MEDS: Lisinopril 40 MG Tablet PO (08:54)
[2022-11-13] MEDS: Allopurinol 100 MG Tablet PO (08:54)
[2022-11-13 08:55] VITALS: BP 116/45; PULSE 74
[2022-11-13] MEDS: hydrALAZINE 10 MG Tablet PO (08:55)
[2022-11-13] MEDS: Aspirin E.C. 81 MG Tablet PO (08:55)
[2022-11-13] MEDS: 0.9% Normal Saline 1,000 ML 75 ML IV (09:01)
--- NOTE | 2022-11-13 09:59 | PCM.PN.CARD ---
Subjective Subjective Patient seen and evaluated. Objective Data Vital Signs: Vital Signs Temp Pulse Resp BP Pulse Ox O2 Del Method 97.4 F L 74 16 116/45 L 94 Room Air 11/13/22 08:49 11/13/22 08:55 11/13/22 08:49 11/13/22 08:55 11/13/22 08:49 11/13/22 08:49 Oxygen Delivery Method Room Air Weight: 203 lb 11.314 oz Body Mass Index (BMI) 36.1 Intake & Output: Intake and Output for Last 24 Hours 11/11/22 11/12/22 11/13/22 23:59 23:59 23:59 Intake Total 859.5 / 1099.5 1213.75 / 1213.75 Output Total 800 / 800 Balance 859.5 / 699.5 413.75 / 413.75 Lab / Micro Data Result Diagrams: 11/13/22 05:20 11/13/22 05:20 Labs: Laboratory Results - last 24 hr 11/12/22 10:08: POC Glucose 140 H 11/12/22 14:25: Troponin I High Sens 122 H* 11/12/22 17:28: POC Glucose 174 H 11/12/22 23:11: POC Glucose 301 H 11/13/22 05:20: WBC 15.5 H, RBC 3.62 L, Hgb 10.6 L, Hct 32.7 L, MCV 90.3, MCH 29.3, MCHC 32.4, RDW Std Deviation 50.7 H, RDW Coeff of Claudia 15.3 H, Plt Count 321, MPV 10.1, Immature Gran % (Auto) 0.600, Neut % (Auto) 82.2 H, Lymph % (Auto) 12.2 L, [place] % (Auto) 4.5, Eos % (Auto) 0.3, Baso % (Auto) 0.2, Absolute Neuts (auto) 12.8 H, Absolute Lymphs (auto) 1.89, Nucleated RBC % 0 11/13/22 05:20: Sodium 140, Potassium 4.1, Chloride 108 H, Carbon Dioxide 23.0, Anion Gap 9, BUN 46 H, Creatinine 1.40 H, Estim Creat Clear Calc 34.47, Est GFR (MDRD) Af Amer 49 L, Est GFR (MDRD) Non-Af 41 L, BUN/Creatinine Ratio 32.9 H, Glucose 210 H, Calcium 9.0 11/13/22 06:50: POC Glucose 179 H Cardiology Labs/Tests 11/13/22 05:20: WBC 15.5 H, RBC 3.62 L, Hgb 10.6 L, Hct 32.7 L, MCV 90.3, MCH 29.3, MCHC 32.4, Plt Count 321, MPV 10.1, Immature Gran % (Auto) 0.600, Neut % (Auto) 82.2 H, Lymph % (Auto) 12.2 L, [place] % (Auto) 4.5, Eos % (Auto) 0.3, Baso % (Auto) 0.2, Absolute Neuts (auto) 12.8 H, Nucleated RBC % 0 11/13/22 05:20: Sodium 140, Potassium 4.1, Chloride 108 H, Carbon Dioxide 23.0, Anion Gap 9, BUN 46 H, Creatinine 1.40 H, Est GFR (MDRD) Af Amer 49 L, Est GFR (MDRD) Non-Af 41 L, BUN/Creatinine Ratio 32.9 H, Glucose 210 H, Calcium 9.0 Rhythm: EKG: ECHO: Stress Test: Cardiac Cath: PCI: CT Surgery: Holter monitor: EPS: PPM: CXR: Chest CT Scan: Radiography Diagnostic Testing: Radiology Impression Chest X-Ray 11/13/22 05:40 IMPRESSION: 1. Postoperative change from pacemaker placement 2. Nodular density overlying the right mid upper lung which may represent a prominent first right costochondral junction. CT imaging of the chest is recommended for further characterization. Electronically Signed: Jj Castillo MD at 8:57 EST , Physical Exam Const alert, oriented x3 and no apparent distress HEENT head/scalp atraumatic, moist oral mucous membranes and oropharynx normal Head and Scalp: normocephalic Mouth: oral and palatal mucosa normal Eyes PERRL, EOMs intact bilaterally and conjunctivae normal Neck no lymphadenopathy, supple and no JVD Resp normal respiratory effort, no retractions, no use of accessory muscles and clear to auscultation bilaterally Cardio regular rate, regular rhythm, S1 normal heart sound, S2 normal heart sound and no murmurs GI normal to inspection, nondistended, normoactive bowel sounds, soft to palpation, non-tender and non-distended Extremity normal to inspection, full ROM and no clubbing, cyanosis or edema Neuro oriented x3, CN's II-XII intact bilaterally, moves all extremities and no focal motor deficits Sensorium / Orientation: awake and alert Motor Exam: strength 5/5 throughout Psych affect normal Assessment & Plan Assessment/Plan (1) Tachycardia with sick sinus syndrome: PLAN: She does appear to have evidence of tachybradycardia syndrome with pauses noted. She underwent placement of a permanent pacemaker yesterday. Pacemaker checks out well today. Chest x-ray is unremarkable with good positioning. We will discharge patient for outpatient follow-up. (2) Resistant hypertension: PLAN: She does have a history of hypertension and the plan to be to continue the current medical therapy. An echocardiogram will be obtained to assess her ventricular function. (3) Presence of stent in coronary artery: PLAN: She does have a history of coronary artery stenting as noted above. The plan will be to continue her current medical therapy. Statins and hopefully beta-cristina will be able to be instituted after the procedure. Thank you for allowing me to participate in the care of your patient. Please don't hesitate to call if any issues arise.
--- NOTE | 2022-11-13 10:04 | DCINST_ITS ---
Discharge Instructions Diet Discharge Diet: No restrictions Activity Discharge Activity: May Not Drive Additional Activity Instructions:: May shower or bathe on [day 3]. Do not scrub the incision or soak in the tub. Just wash with soap and let the water run over the incision. Gently pat dry with towel. Medications: Take your pain medication as directed. Refer to your discharge instruction sheet for a list of medications you are to take. Dressing / Incision Call your doctor if your incision/area has: Continuous Slow Oozing, Sudden Increased Bleeding, Increased Pain/ Swelling, Increased Redness, Foul Smelling Discharge and Swelling at the incision site Call your doctor if you observe: Fever of 101 or Higher, Shortness of breath, Dizziness, Fainting spells, Swelling in the ankles, Chest pain, Prolonged hiccupping and Increased palpitations (irregular heartbeat) Suture Line Care: Avoid Pulling/Pushing and Avoid Pinching/Bending Cleanse incision/area with: Keep Dressing Clean & Dry Additional Dressing/Incision Instructions:: When dressing is removed, wash and dry incision. Keep covered with a light bandage if it is rubbing against your clothing. Do not cover the incision with an airtight bandage. Change the bandage daily. Do not remove steri strips. The strips will fall off on their own. Follow Up Care Please Follow Up With: Donavan Braun MD When: Pacer follow up on November 19 at 10 AM Test Results: Test results from this visit will be discussed in further detail at your follow- up appointment, if applicable. Discharge Plan Admission Admit Date/Time: 11/12/22 04:50 Attending Provider: Lisa Field Primary Care Provider: Gerry Yu Consulting Providers: Donavan Braun ; David Jacques Discharge Orders/Prescriptions Prescriptions: No Action acetaminophen 500 mg capsule 1,000 mg PO PRN PRN (Reason: fever or pain) albuterol sulfate 90 mcg/actuation HFA aerosol inhaler 2 puff inhalation PRN PRN (Reason: shortness of breath or wheezing) allopurinol 100 mg tablet 100 mg PO DAILY amlodipine 5 mg tablet 5 mg PO BID aspirin 81 mg tablet,delayed release (DR/EC) 81 mg PO DAILY atorvastatin 80 mg tablet 80 mg PO QHS ergocalciferol (vitamin D2) 1,250 mcg (50,000 unit) capsule 1,250 mcg PO QWEEK lisinopril 40 mg tablet 40 mg PO DAILY metformin 500 mg tablet 500 mg PO BID ondansetron 4 mg tablet,disintegrating 4 mg PO Q6H PRN (Reason: nausea and vomiting) ticagrelor 90 mg tablet 90 mg PO Q12H chlorthalidone 25 mg tablet 25 mg PO DAILY nitroglycerin 0.4 mg tablet, sublingual 0.4 mg sublingual Q5-15M PRN (Reason: Chest Pain) midodrine 2.5 mg tablet 2.5 mg PO PRN PRN (Reason: Low blood pressure) Label Comments: TAKE 2 TABLETS BY MOUTH 3 TIMES A DAY NEEDED FOR DIZZINESS -IF SBP 90 AND DIZZY clonidine HCl 0.1 mg tablet 0.1 mg PO PRN PRN (Reason: hypertensive emergency) Label Comments: If SBP greater than 180 carvedilol 3.125 mg tablet 1.5625 mg PO .COMPLEX Rx Instructions: 1.5625 mg orally up to twice a day NEEDED for HR greater or equal to 90; must administer with a meal/food hydralazine 10 mg tablet 10 mg PO BID Referrals / Follow Up: Gerry Yu DO [Primary Care Provider] -
[2022-11-13 10:42] VITALS: PULSE 116
[2022-11-13] MEDS: Metoprolol(XL)Succ 25 MG Tablet PO (10:42)
--- NOTE | 2022-11-13 11:41 | DCINST_ITS ---
Discharge Instructions Diet Discharge Diet: No restrictions Activity Discharge Activity: Return to Normal Activity Additional Activity Instructions:: May shower or bathe on [day 3]. Do not scrub the incision or soak in the tub. Just wash with soap and let the water run over the incision. Gently pat dry with towel. Medications: Take your pain medication as directed. Refer to your discharge instruction sheet for a list of medications you are to take. Dressing / Incision Call your doctor if your incision/area has: Continuous Slow Oozing, Sudden Increased Bleeding, Increased Pain/ Swelling, Increased Redness, Foul Smelling Discharge and Swelling at the incision site Call your doctor if you observe: Fever of 101 or Higher, Shortness of breath, Dizziness, Fainting spells, Swelling in the ankles, Chest pain, Prolonged hiccupping and Increased palpitations (irregular heartbeat) Suture Line Care: Avoid Pulling/Pushing and Avoid Pinching/Bending Cleanse incision/area with: Keep Dressing Clean & Dry Additional Dressing/Incision Instructions:: When dressing is removed, wash and dry incision. Keep covered with a light bandage if it is rubbing against your clothing. Do not cover the incision with an airtight bandage. Change the bandage daily. Do not remove steri strips. The strips will fall off on their own. Follow Up Care Please Follow Up With: Donavan Braun MD Test Results: Test results from this visit will be discussed in further detail at your follow- up appointment, if applicable. Discharge Plan Admission Admit Date/Time: 11/12/22 04:50 Primary Reason for Your Visit: tachy erika syndrome Attending Provider: Lisa Field Primary Care Provider: Gerry Yu Consulting Providers: Donavan Braun ; David Jacques Instructions Patient Instructions: Sick Sinus Syndrome Discharge Orders/Prescriptions Prescriptions: New metoprolol succinate 25 mg Tablet Extended Release 24 Hr 25 mg PO DAILY Qty: 60 1RF Continued acetaminophen 500 mg capsule 1,000 mg PO PRN PRN (Reason: fever or pain) albuterol sulfate 90 mcg/actuation HFA aerosol inhaler 2 puff inhalation PRN PRN (Reason: shortness of breath or wheezing) allopurinol 100 mg tablet 100 mg PO DAILY amlodipine 5 mg tablet 5 mg PO BID aspirin 81 mg tablet,delayed release (DR/EC) 81 mg PO DAILY atorvastatin 80 mg tablet 80 mg PO QHS ergocalciferol (vitamin D2) 1,250 mcg (50,000 unit) capsule 1,250 mcg PO QWEEK lisinopril 40 mg tablet 40 mg PO DAILY metformin 500 mg tablet 500 mg PO BID ondansetron 4 mg tablet,disintegrating 4 mg PO Q6H PRN (Reason: nausea and vomiting) ticagrelor 90 mg tablet 90 mg PO Q12H chlorthalidone 25 mg tablet 25 mg PO DAILY nitroglycerin 0.4 mg tablet, sublingual 0.4 mg sublingual Q5-15M PRN (Reason: Chest Pain) midodrine 2.5 mg tablet 2.5 mg PO PRN PRN (Reason: Low blood pressure) Label Comments: TAKE 2 TABLETS BY MOUTH 3 TIMES A DAY NEEDED FOR DIZZINESS -IF SBP 90 AND DIZZY clonidine HCl 0.1 mg tablet 0.1 mg PO PRN PRN (Reason: hypertensive emergency) Label Comments: If SBP greater than 180 hydralazine 10 mg tablet 10 mg PO BID Discontinued carvedilol 3.125 mg tablet 1.5625 mg PO .COMPLEX Rx Instructions: 1.5625 mg orally up to twice a day NEEDED for HR greater or equal to 90; must administer with a meal/food Referrals / Follow Up: Maritza Rivera [Registered Nurse] - 11/19/22 10:00 am (At [facility] ) Donavan Braun MD [Med Staff - Active Staff] - Within 2 Weeks Gerry Yu DO [Primary Care Provider] - Disposition Disposition (needs filled in before D/C Order can be placed): Home, Self Care
--- NOTE | 2022-11-13 11:46 | PCM.DC.SUM ---
Providers Date of Admission: 11/12/22 Date of Discharge: 11/13/22 Primary Care Physician: Dr. Gerry Yu, Consultations 11/12/22 05:44 Consult: Cardiology Routine Consulting Provider: Donavan Braun Reason for Consult: Tachy-erika syndrome EMERGENT Consult: No MD Notified: Yes Date Notified: 11/12/22 Time Notified: 05:44 Method of Notification: Verbal Method of Consult:: In-Person Reason For Visit: CHEST PAIN Diagnosis Discharge Diagnosis (1) Tachycardia with sick sinus syndrome: Status: Acute Code(s): I49.5 - Sick sinus syndrome (2) Resistant hypertension: Status: Acute Code(s): I10 - Essential (primary) hypertension (3) Presence of stent in coronary artery: Status: Acute Code(s): Z95.5 - Presence of coronary angioplasty implant and graft Plan #Chest pain in setting of tachy-erika syndrome EKG showed first degree AV block and RBBB cardiology on board. troponins were negative for pacemaker insertion today #CAD; on aspirin, high intensity statin and brilinta #TYpe 2 diabetes mellitus with nephropathy: metformin on hold. ISS. Accuchecks ACHS #CKD stage IIIa: stable #Hypertension on amlodipine, lisinopril, chlorthalidone and hydralazine. on clonidine also IV hydralazine prn. DVT prophylaxis; lovenox Medications at Discharge Home Medications acetaminophen 500 mg capsule 1,000 mg PO PRN PRN fever or pain 10/18/22 albuterol sulfate 90 mcg/actuation aerosol inhaler 2 puff inhalation PRN PRN shortness of breath or wheezing 10/18/22 allopurinol 100 mg tablet 100 mg PO DAILY Check with primary doctor 10/18/22 amlodipine 5 mg tablet 5 mg PO BID Check with primary doctor 10/18/22 aspirin 81 mg tablet,delayed release 81 mg PO DAILY Check with primary doctor 10/18/22 atorvastatin 80 mg tablet 80 mg PO QHS Check with primary doctor 10/18/22 chlorthalidone 25 mg tablet 25 mg PO DAILY Check with primary doctor 10/18/22 ergocalciferol (vitamin D2) 1,250 mcg (50,000 unit) capsule 1,250 mcg PO QWEEK Check with primary doctor 10/18/22 lisinopril 40 mg tablet 40 mg PO DAILY Check with primary doctor 10/18/22 metformin 500 mg tablet 500 mg PO BID Check with primary doctor 10/18/22 ondansetron 4 mg disintegrating tablet 4 mg PO Q6H PRN nausea and vomiting 10/18/22 ticagrelor 90 mg tablet 90 mg PO Q12H Check with primary doctor 10/18/22 clonidine HCl 0.1 mg tablet 0.1 mg PO PRN PRN hypertensive emergency 10/20/22 midodrine 2.5 mg tablet 2.5 mg PO PRN PRN Low blood pressure 10/20/22 nitroglycerin 0.4 mg sublingual tablet 0.4 mg sublingual Q5-15M PRN Chest Pain 10/20/22 hydralazine 10 mg tablet 10 mg PO BID Check with primary doctor 11/11/22 metoprolol succinate 25 mg tablet,extended release 24 hr 25 mg PO DAILY #60 tabs 11/13/22 Hospital Course Operations None Procedures 2-D Echocardiogram and - (pacemaker insertion) Summary of Care Provided Minutes Spent on Discharge: 50 Hospital Course: Patient is a 62-year-old female with a past medical history as outlined was admitted through the ED on 11/12/2022 as a transfer from [facility] with a complaint of episodic chest pain which started about 3 days prior to admission. Pain was left-sided and radiated to her left arm and was aggravated by walking and relieved by rest. He had assisted nausea and vomiting as well as shortness of breath and palpitations. She said sometimes felt like her heart will be racing and then subsequently will drop. She had been referred to an EP physician for insertion of Micra pacemaker on account of subclavian steal syndrome, but this had not been approved by her insurance. She had previously been taking metoprolol and this was switched to carvedilol. Carvedilol dose was halved but she continued to have a drop in her heart rate so she stopped taking it. Plan was for cardiology started on amiodarone but she was allergic to iodine so she cannot be started on this. EKG showed first-degree AV block and right bundle branch block. Initial high-sensitivity troponin was negative and on repeat was still negative. Cardiology was consulted and she was admitted and managed for chest pain in the setting of tachybradycardia syndrome. Cardiology reviewed patient and she had a pacemaker inserted on 11/12/2022. Her postop course was not complicated. She had follow-up imaging and pacer checks which were all unremarkable. She remained stable and was discharged on 11/13/2022. She was discharged on p.o. metoprolol. She is follow-up with her primary care doctor and follow-up with cardiology within 1 to 2 weeks. Patient seen and examined prior to discharge. She felt well and had an uneventful night. She had no complaints and review of symptoms otherwise negative. Labs and vitals reviewed. Home medication reviewed and reconciled. Physical Exam Const alert, oriented x3 and no apparent distress General Appearance: cooperative, comfortable and well kempt Orientation / Consciousness: awake HEENT normocephalic, head/scalp atraumatic, hearing grossly normal bilaterally, moist oral mucous membranes and oropharynx normal Eyes PERRL, EOMs intact bilaterally and conjunctivae normal Neck no lymphadenopathy, supple and no JVD Resp normal respiratory effort, no retractions, no use of accessory muscles and clear to auscultation bilaterally Cardio regular rate, regular rhythm, S1 normal heart sound, S2 normal heart sound and no murmurs Cardio Narrative: pacemaker in situ, intact dressing over pacemaker. LUE in sling. GI normal to inspection, nondistended, normoactive bowel sounds, soft to palpation, non-tender and non-distended Extremity normal to inspection, full ROM and no clubbing, cyanosis or edema Skin no rashes or lesions noted Neuro oriented x3, CN's II-XII intact bilaterally, moves all extremities and no focal motor deficits Sensorium / Orientation: awake and alert Motor Exam: strength 5/5 throughout Psych affect normal Weight / BMI Weight Weight: 203 lb 11.314 oz Body Mass Index (BMI) 36.1 ABG / Lab / Microbiology Data Result Diagrams: 11/13/22 05:20 11/13/22 05:20 Laboratory: Laboratory Results - last 24 hr 11/12/22 14:25: Troponin I High Sens 122 H* 11/12/22 17:28: POC Glucose 174 H 11/12/22 23:11: POC Glucose 301 H 11/13/22 05:20: WBC 15.5 H, RBC 3.62 L, Hgb 10.6 L, Hct 32.7 L, MCV 90.3, MCH 29.3, MCHC 32.4, RDW Std Deviation 50.7 H, RDW Coeff of Claudia 15.3 H, Plt Count 321, MPV 10.1, Immature Gran % (Auto) 0.600, Neut % (Auto) 82.2 H, Lymph % (Auto) 12.2 L, [place] % (Auto) 4.5, Eos % (Auto) 0.3, Baso % (Auto) 0.2, Absolute Neuts (auto) 12.8 H, Absolute Lymphs (auto) 1.89, Nucleated RBC % 0 11/13/22 05:20: Sodium 140, Potassium 4.1, Chloride 108 H, Carbon Dioxide 23.0, Anion Gap 9, BUN 46 H, Creatinine 1.40 H, Estim Creat Clear Calc 34.47, Est GFR (MDRD) Af Amer 49 L, Est GFR (MDRD) Non-Af 41 L, BUN/Creatinine Ratio 32.9 H, Glucose 210 H, Calcium 9.0 11/13/22 06:50: POC Glucose 179 H Radiography Diagnostic Testing: Radiology Impression Chest X-Ray 11/13/22 05:40 IMPRESSION: 1. Postoperative change from pacemaker placement 2. Nodular density overlying the right mid upper lung which may represent a prominent first right costochondral junction. CT imaging of the chest is recommended for further characterization. Electronically Signed: Jj Castillo MD at 8:57 EST , D/C Instructions Discharge Diet: No restrictions Discharge Activity: Return to Normal Activity Additional Activity Instructions: May shower or bathe on [day 3]. Do not scrub the incision or soak in the tub. Just wash with soap and let the water run over the incision. Gently pat dry with towel. Medications: Take your pain medication as directed. Refer to your discharge instruction sheet for a list of medications you are to take. Call your doctor if your incision/area has: Continuous Slow Oozing, Sudden Increased Bleeding, Increased Pain/ Swelling, Increased Redness, Foul Smelling Discharge and Swelling at the incision site Call your doctor if you observe: Fever of 101 or Higher, Shortness of breath, Dizziness, Fainting spells, Swelling in the ankles, Chest pain, Prolonged hiccupping and Increased palpitations (irregular heartbeat) Suture Line Care: Avoid Pulling/Pushing and Avoid Pinching/Bending Cleanse incision/area with: Keep Dressing Clean & Dry Additional Dressing/Incision Instructions: When dressing is removed, wash and dry incision. Keep covered with a light bandage if it is rubbing against your clothing. Do not cover the incision with an airtight bandage. Change the bandage daily. Do not remove steri strips. The strips will fall off on their own. Please Follow Up With: Donavan Braun MD When: Pacer follow up on November 19 at 10 AM Meaningful Use Info Meaningful Use Diagnoses (Choose all that apply): None applicable Discharge Plan Admission Admit Date/Time: 11/12/22 04:50 Primary Reason for Your Visit: tachy erika syndrome Attending Provider: Lisa Field Primary Care Provider: Gerry Yu Consulting Providers: Donavan Braun ; David Jacques Instructions Patient Instructions: Sick Sinus Syndrome Discharge Orders/Prescriptions Prescriptions: New metoprolol succinate 25 mg Tablet Extended Release 24 Hr 25 mg PO DAILY Qty: 60 1RF Continued acetaminophen 500 mg capsule 1,000 mg PO PRN PRN (Reason: fever or pain) albuterol sulfate 90 mcg/actuation HFA aerosol inhaler 2 puff inhalation PRN PRN (Reason: shortness of breath or wheezing) allopurinol 100 mg tablet 100 mg PO DAILY amlodipine 5 mg tablet 5 mg PO BID aspirin 81 mg tablet,delayed release (DR/EC) 81 mg PO DAILY atorvastatin 80 mg tablet 80 mg PO QHS ergocalciferol (vitamin D2) 1,250 mcg (50,000 unit) capsule 1,250 mcg PO QWEEK lisinopril 40 mg tablet 40 mg PO DAILY metformin 500 mg tablet 500 mg PO BID ondansetron 4 mg tablet,disintegrating 4 mg PO Q6H PRN (Reason: nausea and vomiting) ticagrelor 90 mg tablet 90 mg PO Q12H chlorthalidone 25 mg tablet 25 mg PO DAILY nitroglycerin 0.4 mg tablet, sublingual 0.4 mg sublingual Q5-15M PRN (Reason: Chest Pain) midodrine 2.5 mg tablet 2.5 mg PO PRN PRN (Reason: Low blood pressure) Label Comments: TAKE 2 TABLETS BY MOUTH 3 TIMES A DAY NEEDED FOR DIZZINESS -IF SBP 90 AND DIZZY clonidine HCl 0.1 mg tablet 0.1 mg PO PRN PRN (Reason: hypertensive emergency) Label Comments: If SBP greater than 180 hydralazine 10 mg tablet 10 mg PO BID Discontinued carvedilol 3.125 mg tablet 1.5625 mg PO .COMPLEX Rx Instructions: 1.5625 mg orally up to twice a day NEEDED for HR greater or equal to 90; must administer with a meal/food Referrals / Follow Up: Maritza Rivera [Registered Nurse] - 11/19/22 10:00 am (At [facility] ) Donavan Braun MD [Med Staff - Active Staff] - Within 2 Weeks Gerry Yu DO [Primary Care Provider] - Disposition Disposition (needs filled in before D/C Order can be placed): Home, Self Care Charges/Coding Visit Charges Inpatient E&M: 69389 Disch Hosp >30min
[2022-11-13 12:05] LABS: Bedside Glucose 214 mg/dL (74-106)
== END 2022-11-13 11:41 | disposition home or self-care (01) ==
PROVIDERS: Admitting Provider Hospitalist; PCP Student in an Organized Health Care Education/Training Program; Visit Provider Student in an Organized Health Care Education/Training Program
DX: Z45.018 Encounter for adjustment and management of other part of cardiac pacemaker (principal); I13.0 Hypertensive heart and chronic kidney disease with heart failure and stage 1 through stage 4 chronic kidney disease, or unspecified chronic kidney disease; I50.32 Chronic diastolic (congestive) heart failure; E11.40 Type 2 diabetes mellitus with diabetic neuropathy, unspecified; E11.22 Type 2 diabetes mellitus with diabetic chronic kidney disease; I49.5 Sick sinus syndrome; N18.31 Chronic kidney disease, stage 3a; I45.10 Unspecified right bundle-branch block; I44.0 Atrioventricular block, first degree; I25.10 Atherosclerotic heart disease of native coronary artery without angina pectoris; Z79.02 Long term (current) use of antithrombotics/antiplatelets; Z79.82 Long term (current) use of aspirin; Z95.5 Presence of coronary angioplasty implant and graft; Z79.84 Long term (current) use of oral hypoglycemic drugs; E78.5 Hyperlipidemia, unspecified; R00.2 Palpitations; Z79.899 Other long term (current) drug therapy; D63.1 Anemia in chronic kidney disease; I25.2 Old myocardial infarction; F17.210 Nicotine dependence, cigarettes, uncomplicated
CPT/HCPCS: C1894 ×2; J7030 ×2; 33208; 36415; 71045; 71047; 80048; 82962; 83735; 84484; 85025; 93005; 96361; 96365; 99152; 99153; 99221; J7050; A4216; G0378

== ENCOUNTER → 2022-11-18 | Outpatient (CLI) | payer MEDICAID, SELFPAY ==
--- NOTE | 2022-10-25 14:00 | RAD_ITS ---
EXAM: XR CHEST, 2 VIEWS CLINICAL INDICATION: For PPM iplant on 11/01/22 TECHNIQUE: Frontal and lateral views of the chest. This report was created using [employer] report generation technology. COMPARISON: None. FINDINGS: LUNGS AND PLEURAL SPACES: Unremarkable. No consolidation or edema. No pneumothorax. No effusion. HEART: Unremarkable. Cardiac silhouette not enlarged. MEDIASTINUM: Central airways and mediastinal contour are unremarkable. BONES/JOINTS: Unremarkable. SOFT TISSUES: Unremarkable. RAD/Chest PA and Lateral IMPRESSION: No radiographic evidence of acute cardiopulmonary disease. Electronically Signed: Nacho Sommer MD at 1:42 EST ,
[2022-10-25 14:12] LABS: Bacteria 0 SEEN /hpf (None Seen); Mucous, Urine 0 SEEN /hpf (<or=2+); Red Blood Cells-Urine 0 SEEN /hpf (0-5)
[2022-10-25 15:00] LABS: Hematocrit 38.8 % (37-47); Hemoglobin 12.3 g/dL (12.0-15.0); Mean Corp Hgb Conc 31.7 g/dL (32-36); Mean Corpuscular Hgb 28.9 pg (27.0-32.0); Mean Corpuscular Volume 91.1 fL (81-99); Mean Platelet Vol. 10.2 fl (6.2-12.0); Platelet Count 356 K/mm3 (150-450); RBC Distribution Width CV 15.4 % (11.6-14.6); RBC Distribution Width SD 51.3 fl (35.1-43.9); Red Blood Count 4.26 M/mm3 (4.2-5.4); White Blood Count 12.8 K/mm3 (4.4-11.0)
[2022-10-25 15:04] LABS: Glucose, Dipstick Normal (Normal); Ketone-Dipstick Negative (Negative); Leukocyte Esterase-Dipstick Negative /ul (Negative); Nitrite-Dipstick Negative (Negative); Occult Blood-Urine Negative /ul (Negative); Protein-Dipstick 100 mg/dl (Negative); Specific Gravity, Urine 1.015 (1.002-1.030); Urine Bilirubin Dipstick Negative (Negative); Urine Urobilinogen Normal (Normal)
[2022-10-25 15:15] LABS: Color, Urine Yellow (Yellow); Urine Clarity Clear (Clear)
[2022-10-25 15:17] LABS: Squamous Epithelial Cells - UA 0-5 SEEN /hpf (5-10); White Blood Cells 0-5 SEEN /hpf (0-5)
[2022-10-25 15:24] LABS: Prothrombin Time (Protime)PT. 12.5 SECONDS (11.7-14.9)
[2022-10-25 15:52] LABS: Anion Gap 9 (5-15); BUN 35 mg/dL (7-18); BUN/Creat Ratio 24.5 RATIO (10-20); Calcium,Total 9.4 mg/dL (8.5-10.1); Chloride 108 mmol/L (98-107); Creatinine, Serum 1.43 mg/dL (0.55-1.02); EST Glomerular Filtration Rate 40 mL/min (>60); Est Glom Filt Rate - Afr Amer 48 mL/min (>60); Glucose 128 mg/dL (74-106); Potassium 4.1 mmol/L (3.5-5.1); Sodium Level 141 mmol/L (136-145)
--- NOTE | 2022-11-18 12:53 | VDUE_ITS ---
Reason For Study: pain Left Proximal Left jugular vein is spontaneous, widely patent, phasic, with no intraluminal echogenicity noted. Left subclavian vein is spontaneous, widely patent, phasic, with no intraluminal echogenicity noted. Left Arm Left axillary vein is spontaneous, patent, phasic, competent, compressible and demonstrates augmentation. Left brachial vein is compressible. Left cephalic vein is compressible. Left basilic V in the forearm is dilated and noncompressible. Left Lower Arm Left radial vein is compressible. Left ulnar vein is compressible. Incidental finding of heterogeneous and irregular plaque noted in the L ICA. L ICA velocity of 169.7/35.8 cm/s. Prelim called to the . VL/Venous Duplex US, Unilateral Interpretation Summary Acute superficial thrombus identified in the left basilic vein Deep veins of the left upper extremity are patent and compressible segmentally. There is no evidence of deep vein thrombosis. Incidental finding, left internal carotid artery plaque with moderate stenosis Ordering Physician: Donavan Braun Performed By: Luigi Kelsey RVT ???
== END | disposition home or self-care (01) ==
LOC: CVS 12:52
PROVIDERS: Internal Medicine Cardiovascular Disease; PCP Student in an Organized Health Care Education/Training Program; Visit Provider Internal Medicine Cardiovascular Disease
DX: Z95.0 Presence of cardiac pacemaker (principal); R20.0 Anesthesia of skin; R20.2 Paresthesia of skin; M79.602 Pain in left arm
CPT/HCPCS: 36415; 71046; 80048; 81001; 85027; 85610; 93971

== ENCOUNTER 2022-12-19 16:50 | Emergency (ER) | payer MEDICAID, SELFPAY ==
[2022-12-19 16:51] VITALS: BP 154/49; PULSE 95; RESP 18; TEMP 36.3; O2SAT 100; BMI 35.9
[2022-12-19 17:06] VITALS: BP 149/39; PULSE 90
--- NOTE | 2022-12-19 17:07 | EKG12_ITS ---
Test Reason : LOW BP Blood Pressure : / mmHG Vent. Rate : 081 BPM Atrial Rate : 081 BPM P-R Int : 256 ms QRS Dur : 130 ms QT Int : 426 ms P-R-T Axes : 082 074 035 degrees QTc Int : 494 ms Sinus rhythm with 1st degree A-V block Right bundle branch block Abnormal ECG Confirmed by POLO HANSON, MARNIE ([id number]), features editor QIANA DOHERTY ([id number]) on 12/20/2022 12:42:51 PM Referred By: Confirmed By:MARNIE CUELLAR MD
--- NOTE | 2022-12-19 17:09 | EDS_ITS ---
HPI History of Present Illness Chief Complaint: Hypertension Narrative Narrative: 62-year-old female presenting with chest pain. She states its been occurring all day long. Patient states she feels like her blood pressure is spiking and her heart rate is going up. She states her fastest heart rate was 103. She states her blood pressure was in the 180s at its highest today. She states that this was a problem for most of the morning and she had an hour which was good and then this came back and has been present since. Patient denies any sharp pleuritic pain. She states he does have a history of anxiety. She states that all of my doctors have told me this. She does also have a history of CAD, cardiac stents, sick sinus syndrome. She has a pacemaker in place. [facility] Medical History Anemia of chronic renal failure Aortic calcification Atherosclerosis of coronary artery of [place] heart without angina pectoris Carotid artery stenosis without cerebral infarction Chest pain, unspecified Chronic diastolic (congestive) heart failure Chronic kidney disease, stage 3a Cirrhosis of liver CKD (chronic kidney disease) stage 3, GFR 30-59 ml/min Coronary artery disease Diabetes mellitus type 2 in nonobese Diabetic neuropathy First degree AV block Hx of pulmonary embolus Hyperlipidemia Hypertensive urgency (~09/13/22) Leg swelling Leukocytosis Moderate obstructive sleep apnea NSTEMI (non-ST elevated myocardial infarction) Palpitations Peripheral vascular disease of extremity Presence of cardiac pacemaker RBBB Resistant hypertension Sick sinus syndrome SOB (shortness of breath) Tachycardia with sick sinus syndrome Ventral hernia Home Medications acetaminophen 500 mg capsule 1,000 mg PO PRN PRN fever or pain 10/18/22 [History Last Taken Unknown] albuterol sulfate 90 mcg/actuation aerosol inhaler 2 puff inhalation PRN PRN shortness of breath or wheezing 10/18/22 [History Last Taken Unknown] allopurinol 100 mg tablet 100 mg PO DAILY Check with primary doctor 10/18/22 [History Last Taken Unknown] amlodipine 5 mg tablet 5 mg PO BID Check with primary doctor 10/18/22 [History Last Taken Unknown] aspirin 81 mg tablet,delayed release 81 mg PO DAILY Check with primary doctor 10/18/22 [History Last Taken Unknown] atorvastatin 80 mg tablet 80 mg PO QHS Check with primary doctor 10/18/22 [ History Last Taken Unknown] chlorthalidone 25 mg tablet 25 mg PO DAILY Check with primary doctor 10/18/22 [History Last Taken Unknown] ergocalciferol (vitamin D2) 1,250 mcg (50,000 unit) capsule 1,250 mcg PO QWEEK Check with primary doctor 10/18/22 [History Last Taken Unknown] metformin 500 mg tablet 500 mg PO BID Check with primary doctor 10/18/22 [History Last Taken Unknown] ondansetron 4 mg disintegrating tablet 4 mg PO Q6H PRN nausea and vomiting 10/18/22 [History Last Taken Unknown] ticagrelor 90 mg tablet 90 mg PO Q12H Check with primary doctor 10/18/22 [History Last Taken Unknown] midodrine 2.5 mg tablet 2.5 mg PO PRN PRN Low blood pressure 10/20/22 [History Last Taken Unknown] nitroglycerin 0.4 mg sublingual tablet 0.4 mg sublingual Q5-15M PRN Chest Pain 10/20/22 [History Last Taken Unknown] metoprolol succinate 50 mg tablet,extended release 24 hr 50 mg PO BID This is a dose increase #60 tabs 11/23/22 [Rx Last Taken Unknown] lisinopril 10 mg tablet 10 mg PO DAILY This is a dose decrease #90 tabs 11/24/22 [Rx Last Taken Unknown] Allergy/AdvReac Type Severity Reaction Status Date / Time clindamycin Allergy Severe Laryngospas Verified 12/19/22 16:50 ms Penicillins Allergy Severe Anaphylaxis Verified 12/19/22 16:50 doxazosin [From Cardura] Allergy Intermediate Swelling Verified 12/19/22 16:50 Iodinated Contrast Media Allergy Intermediate Hives Verified 12/19/22 16:50 shellfish derived Allergy Intermediate Hives Verified 12/19/22 16:50 Family History Mother Heart disease Cancer renal CVA (cerebral vascular accident) Grandmother Myocardial infarction Diabetes Surgical History History of coronary artery stent placement (~06/03/22) Hx of cardiac catheterization Hx of cholecystectomy Hx of hysterectomy (~1992) Presence of stent in coronary artery Social History housing: house Smoking Status: Current every day smoker tobacco type: cigarettes alcohol intake: never substance use type: does not use caffeine: Yes Type: coffee Number of servings: 1 EXAM Physical Exam Const Vital Signs: 12/19/22 16:51 12/19/22 17:00 12/19/22 17:06 Temperature 97.3 F L Temperature Source Temporal Pulse Rate 95 90 Respiratory Rate 18 Respiratory Pattern Normal Blood Pressure 154/49 H 149/39 H Blood Pressure Mean 84 75 Pulse Ox 100 Oxygen Delivery Method Room Air 12/19/22 17:10 12/19/22 18:18 Temperature Temperature Source Pulse Rate 78 Respiratory Rate 21 H Respiratory Pattern Blood Pressure 166/77 H Blood Pressure Mean 106 Pulse Ox 98 Oxygen Delivery Method Room Air Room Air MDM MDM MDM Narrative Medical decision making narrative: Patient with history of CAD, cardiac stents, pacemaker, hyperlipidemia, hypertension in addition to anxiety. She states that she has been having elevated blood pressures and heart rates today. Fastest heart rate is 103. While I am actually talking to her she states she is feeling sensation of fast heart rate and palpitations but her heart rate is 90 on the monitor. Her blood pressure is 149/39 while interviewing her. Neither of these seem to be terribly abnormal. Differential includes but is not limited to ACS, PE, anxiety, pneumothorax, muscle strain, costochondritis. EKG was obtained and on my interpretation shows normal sinus rhythm with a rate of 81 bpm without evidence of ischemic change or dysrhythmia. Chest x-ray my interpretation shows no acute process. Radiologist services and grease. CBC shows leukocytosis of 16.2 which has had this on last 2 visits. No significant left shift. Hemoglobin monitor stable. Platelets are normal. Renal function at baseline. Electrolytes within normal limits. High-sensitivity troponin is 9 and delta troponin is 8. No significant interval change. At this point with a negative work-up I feel the patient is stable to be discharged home. Patient states that she was supposed to be referred to somebody through with cardiology and she states she will call the cardiology office tomorrow to obtain a referral to see somebody for anxiety. Return precautions were discussed. Impression: 1. Chest pain 2. Anxiety 3. Leukocytosis Lab Data Labs: Laboratory Results - last 24 hr 12/19/22 12/19/22 12/19/22 17:05 17:05 19:20 WBC 16.2 H RBC 4.41 Hgb 12.7 Hct 40.5 MCV 91.8 MCH 28.8 MCHC 31.4 L RDW Std Deviation 51.1 H RDW Coeff of Claudia 15.3 H Plt Count 423 MPV 9.7 Immature Gran % (Auto) 0.500 Neut % (Auto) 70.7 H Lymph % (Auto) 17.7 L [place] % (Auto) 4.9 Eos % (Auto) 5.1 H Baso % (Auto) 1.1 H Absolute Neuts (auto) 11.5 H Absolute Lymphs (auto) 2.87 Nucleated RBC % 0.2 Sodium 139 Potassium 3.9 Chloride 105 Carbon Dioxide 21.0 Anion Gap 13 BUN 35 H Creatinine 1.58 H Estim Creat Clear Calc 30.54 Est GFR (MDRD) Af Amer 43 L Est GFR (MDRD) Non-Af 35 L BUN/Creatinine Ratio 22.2 H Glucose 237 H Calcium 9.6 Troponin I High Sens 9 8 Radiography Diagnostic Testing: Clinical Impression(s) from Imaging Studies Chest X-Ray 12/19/22 17:10 IMPRESSION: There are no acute findings. Electronically Signed: Freddie Arcos MD at 17:32 EDT Reading Location ID and State: [facility] / [place] , Service support , Discharge Plan Triage Chief Complaint: Hypertension Other Complaint: Chest Pain ED Provider: Joel Barreto Dx/Rx/DC Orders Instructions: ED Anxiety Reaction, ED Chest Pain, Uncertain Cause Prescriptions: No Action acetaminophen 500 mg capsule 1,000 mg PO PRN PRN (Reason: fever or pain) albuterol sulfate 90 mcg/actuation HFA aerosol inhaler 2 puff inhalation PRN PRN (Reason: shortness of breath or wheezing) allopurinol 100 mg tablet 100 mg PO DAILY amlodipine 5 mg tablet 5 mg PO BID aspirin 81 mg tablet,delayed release (DR/EC) 81 mg PO DAILY atorvastatin 80 mg tablet 80 mg PO QHS ergocalciferol (vitamin D2) 1,250 mcg (50,000 unit) capsule 1,250 mcg PO QWEEK metformin 500 mg tablet 500 mg PO BID ondansetron 4 mg tablet,disintegrating 4 mg PO Q6H PRN (Reason: nausea and vomiting) ticagrelor 90 mg tablet 90 mg PO Q12H chlorthalidone 25 mg tablet 25 mg PO DAILY nitroglycerin 0.4 mg tablet, sublingual 0.4 mg sublingual Q5-15M PRN (Reason: Chest Pain) midodrine 2.5 mg tablet 2.5 mg PO PRN PRN (Reason: Low blood pressure) Label Comments: TAKE 2 TABLETS BY MOUTH 3 TIMES A DAY NEEDED FOR DIZZINESS -IF SBP 90 AND DIZZY metoprolol succinate 50 mg tablet extended release 24 hr 50 mg PO BID Qty: 60 6RF lisinopril 10 mg tablet 10 mg PO DAILY Qty: 90 3RF Primary Care Provider: Gerry Yu Referrals: Gerry Yu DO [Primary Care Provider] - Disposition Disposition: Home, Self Care Discharge Date/Time: 12/19/22 20:54
[2022-12-19] MEDS: Aspirin 81 MG TAB.CHEW 324 MG PO (17:10)
--- NOTE | 2022-12-19 17:10 | RAD_ITS ---
STUDY: XR Chest 1 View 12/19/2022 5:11 PM REASON FOR EXAM: Female, 62 years old. CHEST PAIN chest pain COMPARISON: 11/13/2022 TECHNIQUE: XR Chest 1 View FINDINGS: There is no demonstrated pleural abnormality. There is a left sided pacemaker batter[place]ack. Normal heart size. Normal mediastinum. Normal lavon. Prominent appearing increased interstitial lung markings. Normal visualized pulmonary arteries. There is atherosclerotic calcification of the aortic arch with tortuosity. There are diffuse degenerative changes of the visualized thoracic spine. There is degenerative osteoarthritis of the bilateral shoulders. There is no demonstrated abnormality of the visualized soft tissue structures of the upper abdomen. RAD/Chest 1 View (Portable) IMPRESSION: There are no acute findings. Electronically Signed: Freddie Arcos MD at 17:32 EDT ,
[2022-12-19 17:27] LABS: Absolute Lymphocyte Count 2.87 X10^3/uL (0.83-4.51); Absolute Neutrophil Count 11.5 X10^3/uL (2.0-7.7); Basophil# 0.18 X10^3/uL; Basophil% 1.1 % (0-1); Eosinophil# 0.83 X10^3/uL; Eosinophils% 5.1 % (0-5); Hematocrit 40.5 % (37-47); Hemoglobin 12.7 g/dL (12.0-15.0); Lymphocyte # 2.87 X10^3/ul (0.83-4.51); Lymphocyte % 17.7 % (19-41); Mean Corp Hgb Conc 31.4 g/dL (32-36); Mean Corpuscular Hgb 28.8 pg (27.0-32.0); Mean Corpuscular Volume 91.8 fL (81-99); Mean Platelet Vol. 9.7 fl (6.2-12.0); Monocyte% 4.9 % (0-10); NRBC Flagged by Analyzer 0.2 % (0-5); Neutrophil # 11.47 X10^3/uL (2.7-7.7); Neutrophil % 70.7 % (47-70); Platelet Count 423 K/mm3 (150-450); RBC Distribution Width CV 15.3 % (11.6-14.6); RBC Distribution Width SD 51.1 fl (35.1-43.9); Red Blood Count 4.41 M/mm3 (4.2-5.4); White Blood Count 16.2 K/mm3 (4.4-11.0)
[2022-12-19 17:41] LABS: Anion Gap 13 (5-15); BUN 35 mg/dL (7-18); BUN/Creat Ratio 22.2 RATIO (10-20); Calcium,Total 9.6 mg/dL (8.5-10.1); Chloride 105 mmol/L (98-107); Creatinine, Serum 1.58 mg/dL (0.55-1.02); EST Glomerular Filtration Rate 35 mL/min (>60); Est Glom Filt Rate - Afr Amer 43 mL/min (>60); Estimated Creatinine Clearance 30.54 ml/min; Glucose 237 mg/dL (74-106); Potassium 3.9 mmol/L (3.5-5.1); Sodium Level 139 mmol/L (136-145); Troponin-I HS (w/2H Reflex) 9 pg/mL (3.0-54.0)
[2022-12-19 18:18] VITALS: BP 166/77; PULSE 78; RESP 21; O2SAT 98
[2022-12-19 19:12] LABS: Reflex Troponin-HS? (from REC) Y
[2022-12-19 19:39] LABS: Troponin-I HS 8 pg/mL (3.0-54.0)
== END 2022-12-19 20:54 | disposition home or self-care (01) ==
PROVIDERS: Emergency Provider Student in an Organized Health Care Education/Training Program; PCP Student in an Organized Health Care Education/Training Program; Visit Provider Student in an Organized Health Care Education/Training Program
DX: R07.9 Chest pain, unspecified (principal); I13.0 Hypertensive heart and chronic kidney disease with heart failure and stage 1 through stage 4 chronic kidney disease, or unspecified chronic kidney disease; I50.32 Chronic diastolic (congestive) heart failure; E11.22 Type 2 diabetes mellitus with diabetic chronic kidney disease; E11.40 Type 2 diabetes mellitus with diabetic neuropathy, unspecified; N18.31 Chronic kidney disease, stage 3a; I25.10 Atherosclerotic heart disease of native coronary artery without angina pectoris; F41.9 Anxiety disorder, unspecified; E78.5 Hyperlipidemia, unspecified; Z95.5 Presence of coronary angioplasty implant and graft; D72.829 Elevated white blood cell count, unspecified; Z79.899 Other long term (current) drug therapy; Z79.82 Long term (current) use of aspirin; Z95.0 Presence of cardiac pacemaker; F17.210 Nicotine dependence, cigarettes, uncomplicated
CPT/HCPCS: 71045; 80048; 84484; 85025; 93005; 99285; A4216

== ENCOUNTER → 2024-04-16 | Outpatient (CLI) | payer MEDICAID, SELFPAY ==
--- NOTE | 2024-04-16 07:53 | US_ITS ---
STUDY: ABDOMINAL ULTRASOUND - RIGHT UPPER QUADRANT; ELASTOGRAPHY REASON FOR VISIT: Female, 63 years old. Advanced liver fibrosis. TECHNIQUE: Ultrasound evaluation of the right upper quadrant was performed with real-time and static seaman-scale imaging. Point quantification shear wave elastography was performed ([employer]). TECHNICAL QUALITY: Limited. Examination limited due to obesity. COMPARISON: None. FINDINGS: Liver: The liver measures 17.4 cm. There is increased echogenicity consistent with fatty infiltration. The bile ducts are within normal limits. There is hepatic color flow. The direction of portal flow is hepatopetal. There is no demonstrated mass lesion. Median liver stiffness measured 10.6 kPa. Gallbladder: The patient is status post cholecystectomy. Common Bile Duct (C.B.D.): The common bile duct measures 4.9 mm. Pancreas: There is normal echogenicity of the visualized pancreas. There is no demonstrated pancreatic mass or cyst. Right Kidney: Normal size of the right kidney. The right kidney measures 10.3 cm x 5.2 cm x 4.4 cm. Normal renal cortex. The right cortex measures 1.4 cm. There is no demonstrated renal mass or cyst. There is no right hydronephrosis. Spleen: The spleen measures 10.7 cm x 4.8 cm x 3.6 cm US/ABD Limited w/ Elastography IMPRESSION: 1. Liver stiffness measures 10.6 kPa compatible with F2-F3 (Mild to moderate liver fibrosis) Metavir score. Electronically Signed: Liu Flaherty MD at 14:54 EDT ,
== END | disposition home or self-care (01) ==
LOC: US 07:43
PROVIDERS: PCP Student in an Organized Health Care Education/Training Program; Referring Provider Internal Medicine; Visit Provider Internal Medicine
DX: K74.00 Hepatic fibrosis, unspecified (principal); I50.32 Chronic diastolic (congestive) heart failure; N18.30 Chronic kidney disease, stage 3 unspecified; E78.5 Hyperlipidemia, unspecified; R09.89 Other specified symptoms and signs involving the circulatory and respiratory systems; I34.81 Nonrheumatic mitral (valve) annulus calcification
CPT/HCPCS: 76705; 76981